=== PATIENT | female | born 1960 | race Caucasian/White ===

== ENCOUNTER 2019-04-07 14:46 | Outpatient (CLI) | payer BC, SELFPAY ==
--- NOTE | ~2019-04-07 | MM_ITS ---
EXAMINATION: MM screening [facility] BI w gabriela HISTORY: Screening mammogram TECHNIQUE: Craniocaudal and mediolateral oblique 3-D tomosynthesis images were obtained and synthetic 2-D images were generated. CAD analysis was submitted and interpreted. COMPARISON: Prior mammograms dating back to 02/15/2015 BREAST PARENCHYMAL COMPOSITION: There are scattered areas of fibroglandular density. FINDINGS: There is no evidence of suspicious mass, calcification, or architectural distortion to sugg est malignancy in either breast. There has been no suspicious interval change. IMPRESSION: 1. No mammographic evidence of malignancy. 2. Recommend routine screening mammography in one year. BI-RADS Category 1: Negative Reviewed, dictated and finalized at location A. LATOR OPERATOR
== END 2019-04-07 14:47 | disposition home or self-care (01) ==
LOC: ANHIMG 14:47
PROVIDERS: PCP Internal Medicine; Visit Provider Internal Medicine
DX: Z12.31 Encounter for screening mammogram for malignant neoplasm of breast (principal)
CPT/HCPCS: 77063; 77067

== ENCOUNTER 2019-10-03 15:06 | Outpatient (CLI) | payer BC, SELFPAY ==
--- NOTE | ~2019-10-03 | DEXA_ITS ---
Bone Density Report Name: Padmini Soni Age: 59 Sex: Female Ethnicity: White Date of : 1960 Indication: osteopenia; parental hip fracture; Referring Provider: [place], Letty Blake Study: Bone densitometry was performed. Exam Date: October 03, 2019 Accession number: [id number] Bone Density: Region BMD T-score Z-score Classification AP Spine (L1-L4) 0.870 -1.6 -0.2 Osteopenia Femoral Neck (Left) 0.628 -2.0 -0.7 Osteopenia Total Hip (Left) 0.754 -1.5 -0.6 Osteopenia Total Hip Bilateral Avg 0.733 -1.7 -0.8 Osteopenia Femoral Neck (Right) 0.630 -2.0 -0.7 Osteopenia Total Hip (Right) 0.711 -1.9 -1.0 Osteopenia World Health Organization criteria for BMD impression classify patients as: Normal (T-score at or above -1.0), Osteopenia (T-score between -1.0 and -2.5), or Osteoporosis (T-score at or below -2.5). 10-year Fracture Risk(1): Major Osteoporotic Fracture 18% Hip Fracture 1.1% Reported Risk Factors: [place] (), Neck BMD=0.630, BMI=25.9, parental fracture (1) FRAX(R) Version 3.08. Fracture probability calculated for an untreated patient. Fracture probability may be lower if the patient has received treatment. Previous Exams: Region Exam Age BMD T-score BMD Change BMD Change Date g/cm2 vs Baseline vs Previous AP Spine(L1-L4) 10/03/2019 59 0.870 -1.6 -0.086(-9.0%)# -0.001(-0.1%) 01/20/2016 55 0.871 -1.6 -0.085(-8.8%)# -0.085(-8.8%)# 12/12/2011 51 0.956 -0.8 Total Hip(Left) 10/03/2019 59 0.754 -1.5 -0.088(-10.4%) -0.080(-9.5%)* 01/20/2016 55 0.834 -0.9 -0.008(-1.0%)# -0.008(-1.0%)# 12/12/2011 51 0.842 -0.8 Total Hip(Right) 10/03/2019 59 0.711 -1.9 -0.124(-14.8%) -0.015(-2.0%) 01/20/2016 55 0.726 -1.8 -0.109(-13.0%) -0.109(-13.0%) 12/12/2011 51 0.835 -0.9 *Denotes significance at 95% confidence level, LSC for AP Spine = 0.022 g/cm2, LSC for Total Hip = 0.027 g/cm2 Clinical Information Provided by Patient: Parent has had a hip fracture Has used the following medications: Vitamin D, Calcium Patient maximum height was 63 Menopause Age: 51 Drinks caffeinated beverages Onset of menses at age 13 Number of children 2 Impression: The patient has low bone mass, based on the Left Femoral Neck T-score. The patient has an estimated ten-year risk of hip fracture of 1.1% and an estimated ten-year risk of major fracture of 18%, based on the WHO FRAX algorithm. The patient has risk factors, including:
== END 2019-10-03 15:07 | disposition home or self-care (01) ==
PROVIDERS: PCP Internal Medicine; Visit Provider Nurse Practitioner Family
DX: M85.89 Other specified disorders of bone density and structure, multiple sites (principal)
CPT/HCPCS: 77080

== ENCOUNTER 2020-04-29 09:32 | Outpatient (CLI) | payer BC, SELFPAY ==
--- NOTE | ~2020-04-29 | XR_ITS ---
EXAMINATION: XR abdomen/kub 1V EXAM DATE: 04/29/2020 10:12 INDICATION: Right kidney stone. TECHNIQUE: Frontal projection(s) of the abdomen for interpretation. Comparison is made to prior exami nation from 01/08/2018. FINDINGS: There are cholecystectomy clips. There is moderate amount of colonic stool and gas. No s mall bowel dilation, nonobstructive bowel gas pattern. Calcifications in the pelvis are believed to be phleboliths. There is no organomegaly suspected. Mild lumbar dextroscoliosis. No evidence of ba silar airspace disease. IMPRESSION: Multiple pelvic calcifications consistent with phleboliths. Moderate colonic stool. Reviewed, dictated and finalized at location B. FILLER IMPRESSION: Multiple pelvic calcifications consistent with phleboliths. Modera te colonic stool.
== END 2020-04-29 09:33 | disposition home or self-care (01) ==
PROVIDERS: PCP Nurse Practitioner Family; Visit Provider Urology
DX: N20.0 Calculus of kidney (principal)
CPT/HCPCS: 74018

== ENCOUNTER 2020-07-14 13:51 | Outpatient (CLI) | payer BC, SELFPAY ==
--- NOTE | ~2020-07-14 | MM_ITS ---
EXAMINATION: MM screening [facility] BI w gabriela HISTORY: Screening mammogram TECHNIQUE: Craniocaudal and mediolateral oblique 3-D tomosynthesis images were obtained and synthetic 2-D images were generated. CAD analysis was submitted and interpreted. COMPARISON: 04/07/2019, 09/10/2018, 03/18/2018, 03/14/2017 BREAST PARENCHYMAL COMPOSITION: The breasts are almost entirely fatty. FINDINGS: There is no evidence of suspicious mass, calcification, or architectural distortion to sugg est malignancy in either breast. There has been no suspicious interval change. IMPRESSION: 1. No mammographic evidence of malignancy. 2. Recommend routine screening mammography in one year. BI-RADS Category 1: Negative Reviewed, dictated and finalized at location A.
== END 2020-07-14 13:52 | disposition home or self-care (01) ==
LOC: ANHIMG 13:56
PROVIDERS: PCP Nurse Practitioner Family; Visit Provider Nurse Practitioner Family
DX: Z12.31 Encounter for screening mammogram for malignant neoplasm of breast (principal)
CPT/HCPCS: 77063; 77067

== ENCOUNTER 2020-07-14 14:29 | Outpatient (CLI) | payer BC, SELFPAY | END 2020-07-14 14:30 | disposition home or self-care (01) | LOC: ANHSURGERY 14:32 | PROVIDERS: PCP Nurse Practitioner Family; Visit Provider Urology | DX: N39.3 Stress incontinence (female) (male) (principal) | CPT/HCPCS: 87086 ==

== ENCOUNTER → 2020-07-20 02:52 | Outpatient (CLI) | payer BC, SELFPAY ==
[2020-07-20 20:06] LABS: SARS-CoV-2 RNA PCR Negative
== END ==
PROVIDERS: PCP Nurse Practitioner Family; Visit Provider Urology
DX: Z01.812 Encounter for preprocedural laboratory examination (principal); Z20.822 Contact with and (suspected) exposure to COVID-19
CPT/HCPCS: C9803; U0003; U0005

== ENCOUNTER 2020-07-23 02:35 | Day surgery (SDC) | payer BC, SELFPAY ==
[2020-07-13 09:41] VITALS: BMI 27.0
--- NOTE | 2020-07-16 19:20 | PM.IMHP ---
H&P: HPI History of Present Illness Date/Time: 07/16/20 19:20 60-year-old woman with mixed urinary incontinence. She has both stress and urge. She is here for treatment of stress incontinence Chief Complaint: MANOHAR Review of Systems Review of Systems: All systems reviewed & are unremarkable except as noted in HPI and below PMFSH Past Medical History Medical History (Reviewed 04/27/20 @ 15:28 by Ghislaine Piedra [facility]) Depression Epigastric pain GERD (gastroesophageal reflux disease) Surgical History Surgical History History of delivery x2 History of cholecystectomy Family History Family History Mother Patient's mother is , Onset Age: 89 Hypertension Family history of Alzheimer's disease Father Patient's father is , Onset Age: 71 Cerebrovascular accident Social History Social History (Reviewed 04/27/20 @ 15:28 by Ghislaine Piedra [facility]) Smoking packs per day: 1 Smoking cigarettes per day: 20.0 Years smoked: 2 Smoking pack-years: 2.00 Smoking status: Former smoker Tobacco type: cigarettes Smoking end date: 03/05/78 Alcohol intake: never Substance use: never Last use: 1978 Gender identity (if verbalized by the patient): Female Spiritual care concerns: No Meds Home Medications and Allergies Home Medications Medication Instructions Recorded Confirmed Type estradiol 10 mcg VAGINAL DAILY 07/13/20 07/13/20 History potassium citrate 15 meq PO DAILY 07/13/20 07/13/20 History Allergies Allergy/AdvReac Type Severity Reaction Status Date / Time nitrofurantoin Allergy Unknown FEVER AND Verified 04/27/20 15:26 JOINT PAIN sulfamethizole Allergy Unknown Fever Verified 04/27/20 15:26 sulfamethoxazole Allergy Unknown FEVER AND Verified 04/27/20 15:26 JOINT PAIN trimethoprim Allergy Unknown Fever Verified 04/27/20 15:26 hydrocodone AdvReac Unknown NAUSEA/VOMI Verified 04/27/20 15:26 TING Exam Const: General: cooperative and healthy appearing HENMT: Head: normal to inspection Eyes: General: appearance normal, both eyes and all related structures Neck: Neck: normal visual inspection Resp: Effort & Inspection: normal respiratory effort and able to speak in complete sentences Back/Spine/Pelvis: Back: no CVA tenderness Skin: General skin exam: normal color Assessment and Plan Assessment and plan (1) MANOHAR (stress urinary incontinence, female): Code(s): N39.3 - Stress incontinence (female) (male) Status: Acute Assessment and Plan: urethral sling
[2020-07-23 06:12] VITALS: BP 110/60; PULSE 74; RESP 16; TEMP 36.4; O2SAT 99
[2020-07-23] MEDS: LACTATED RINGERS 1,000 ML 30 ML IV CONT (06:20)
--- NOTE | 2020-07-23 07:14 | WPDHPUPDATE1 ---
History and Physical Update Update Date/Time: 07/23/20 07:14 History and Physical has been reviewed, including an updated exam of the patient. There are NO changes in the patient's condition. Risks, benefits, and alternatives have been discussed and questions answered. Patient agrees to proceed with procedure.
--- NOTE | 2020-07-23 07:28 | WPDANESEPPF ---
Anes - Initial Pre Proc Eval Procedure: Operation Date: 07/23/20 07:30 Proposed Procedures p Urethral Sling - Gomez Berkowitz MD Date/Time: 07/23/20 07:28 Surgeon: Gomez Berkowitz MD Pre Op Diagnosis: stress incon. Patient Data Age: 60 Gender: F Height: 5 ft 2 in Weight: 66.8 kg Last Vital Signs Temp 97.6 F 07/23/20 06:12 Pulse 74 07/23/20 06:12 Resp 16 07/23/20 06:12 BP 110/60 07/23/20 06:12 Pulse Ox 99 07/23/20 06:12 Allergies Allergy/AdvReac Type Severity Reaction Status Date / Time nitrofurantoin Allergy Unknown FEVER AND Verified 07/23/20 06:53 JOINT PAIN sulfamethizole Allergy Unknown Fever Verified 07/23/20 06:53 sulfamethoxazole Allergy Unknown FEVER AND Verified 07/23/20 06:53 JOINT PAIN trimethoprim Allergy Unknown Fever Verified 07/23/20 06:53 hydrocodone AdvReac Unknown NAUSEA/VOMI Verified 07/23/20 06:53 TING Home Medications Medication Instructions Recorded Confirmed Type estradiol 10 mcg VAGINAL DAILY 07/13/20 07/23/20 History potassium citrate 15 meq PO DAILY 07/13/20 07/23/20 History Patient hx anesthesia problems: none Family hx anesthesia problems: none PMFSH Past Medical History Medical History Depression Epigastric pain GERD (gastroesophageal reflux disease) Surgical History Surgical History History of delivery x2 History of cholecystectomy Family History Family History Mother Patient's mother is , Onset Age: 89 Hypertension Family history of Alzheimer's disease Father Patient's father is , Onset Age: 71 Cerebrovascular accident Social History Social History Smoking packs per day: 1 Smoking cigarettes per day: 20.0 Years smoked: 2 Smoking pack-years: 2.00 Smoking status: Former smoker Tobacco type: cigarettes Smoking end date: 03/05/78 Alcohol intake: never Substance use: never Last use: 1978 Living arrangements: with family Gender identity (if verbalized by the patient): Female Sexual Orientation (if Verbalized by the Patient): Straight or Heterosexual Spiritual care concerns: No Anes - Eval Final PreProcedure Day of Procedure 07/23/20 07:28 Patient weight: normal Heart: regular rate and rhythm Lungs: clear to auscultation Airway: Mallampati scale class II Neurological: alert and oriented Last oral intake: >/= 8 hours ASA classification: II Emergent: no Anesthetic plan: proceed Anesthesia type and monitoring: general GIVS and standard monitoring Informed Consent: The patient's anesthetic plan and its attendant risks and benefits were discussed with the patient/family/POA. Questions were solicited and answers provided to the satisfaction of the patient/family/POA.
[2020-07-23] MEDS: ceFAZolin 2 GM/D5W 50 ML 2 GM/50 ML BAG IVPB (07:30)
[2020-07-23] MEDS: LIDO 1%/EPINEPHRINE 1:100,000 50 ML VIAL 10 ML INFILTRATE (07:46)
--- NOTE | 2020-07-23 07:55 | PM.PROC ---
Procedure Note - Detailed Date of procedure: 07/23/20 Pre-op diagnosis: stress incon. Stress urinary incontinence Post-op diagnosis: same Procedure performed: Transobturator Mid-urethral sling Cystoscopy Description of procedure: Anesthesia: Mac/local This is a patient with confirmed stress urinary incontinence. She desires correction. She understands the risks of bleeding, infection, damage to the urinary tract, lack of cure of stress incontinence, recurrence of stress incontinence, postoperative voiding dysfunction including incontinence and retention, need for ancillary procedures to loosen remove the sling, postoperative voiding dysfunction including retention and overactive bladder, hip and leg pain, dyspareunia, mesh related complications including exposure and extrusion. She agrees to proceed. She understands it will not help overactive bladder symptoms if present. She was correctly identified and informed consent obtained. She is brought to the operating room. She was given appropriate anesthesia. She was placed in the dorsal lithotomy position. All pressure points were padded. She was given appropriate perioperative antibiotics and a time-out performed. A Tyler catheter is placed. I marked out the thigh incisions anesthetize the skin and made those incisions. I anesthetized the anterior vaginal wall over the mid urethra. I made a 1 cm incision. I dissected out laterally taking great care not to injure the urethra or the vaginal wall. Passed the helical trocars 1st on the left and then on the right from the thigh incision towards the vaginal incision. Sling was connected to the trocars and brought out through the thigh incision. I tensioned the sling appropriately. I cut and removed the plastic sheaths. I closed the incision with 2 0 Vicryl. I then performed cystoscopy. There was no surgical artifact or abnormalities inside the bladder. The urethra was normal without surgical artifact. I cut the excess sling material. I closed the incisions with glue. She was awakened and transferred to the PACU in stable condition. Implants: Mid urethral sling Surgeon: Gomez Berkowitz MD Drains: No Packing: No Pathology: none sent Complications: No immediate complications Condition: stable Disposition: PACU
[2020-07-23 07:59] VITALS: BP 95/48; PULSE 80; RESP 16; O2SAT 98
[2020-07-23 08:25] VITALS: BP 109/71; PULSE 85; RESP 16; O2SAT 98
[2020-07-23] MEDS: oxyCODONE HCL (*CRX) 5 MG TAB IR PO (08:39)
[2020-07-23 08:55] VITALS: BP 85/62; PULSE 74; RESP 16
[2020-07-23 09:10] VITALS: BP 87/64; PULSE 59; RESP 16
--- NOTE | 2020-07-23 10:07 | SUR.PHASEII ---
After discharged from hospital patient came back, while in car came in to outpatient waiting room reporting patient having back pain and shortness of breath, advised to immediately go to ER. Charting nurse informed Dr Chatterjee and Dr Berkowitz and ER charge was called to let her know patient was arriving.
== END 2020-07-23 09:15 | disposition home or self-care (01) ==
PROVIDERS: PCP Nurse Practitioner Family; Visit Provider Urology
PROC: (CPT 57288; principal; 2020-07-23 07:30)
DX: N39.3 Stress incontinence (female) (male) (principal); K21.9 Gastro-esophageal reflux disease without esophagitis; F32.9 Major depressive disorder, single episode, unspecified; Z87.891 Personal history of nicotine dependence
CPT/HCPCS: 57288; A9270; C1771; J0690; J2704; J3010; J7030; J7120

== ENCOUNTER 2020-07-23 09:43 | Emergency (ER) | payer BC, SELFPAY ==
--- NOTE | 2020-07-23 09:48 | ECG_ITS ---
Measurements Intervals [place] Rate: 86 P: 64 MA: 172 QRS: 27 QRSD: 82 T: -4 QT: 334 QTc: 400 Interpretive Statements SINUS RHYTHM POSSIBLE LEFT ATRIAL ENLARGEMENT LOW QRS VOLTAGE IN PRECORDIAL LEADS CANNOT RULE OUT SEPTAL INFARCT, AGE INDETERMINATE BORDERLINE ST-T WAVE ABNORMALITY- ANTEROLAT/INF LEADS BASELINE ARTIFACT- I, II, III, AVR, AVL, AVF, V1-V6 ABNORMAL ECG Electronically Signed On 07-23-2020 10:10:12 CDT by Prabhjot Reyes D.O.
[2020-07-23 09:49] VITALS: BP 125/67; PULSE 89; RESP 24; TEMP 36.1; O2SAT 97
[2020-07-23] MEDS: ONDANSETRON INJ 4 MG/2 ML VIAL IV PUSH (10:02)
[2020-07-23] MEDS: SODIUM CHLORIDE 0.9% IV 1,000 ML 150 ML IV CONT (10:02)
[2020-07-23] MEDS: methylPREDNISolone SOD SUCC 125 MG VIAL IV PUSH (10:03)
[2020-07-23 10:13] LABS: Basophils Absolute Auto 0.1 K/mm3 (0.0-0.1); Basophils Percent Auto 0.9 % (0.2-1.2); Eosinophils Absolute Auto 0.4 K/mm3 (0-0.3); Eosinophils Percent Auto 5.2 % (0-4.4); Hematocrit 43.8 % (37.0-47.0); Hemoglobin 14.6 g/dL (12.0-15.0); Immature Granulocyte Absolute 0.02 K/mm3 (0.00-0.031); Immature Granulocyte Percent A 0.3 % (0-0.5); Lymphocytes Absolute Auto 2.51 K/mm3 (0.9-3.2); Lymphocytes Percent Auto 32.8 % (18.3-44.2); Mean Corpuscular HGB Conc 33.3 g/dl (32-36); Mean Corpuscular Hemoglobin 31.6 pg (26-34); Mean Corpuscular Volume 94.8 fl (80-100); Monocytes Absolute Auto 0.6 K/mm3 (0.1-0.6); Monocytes Percent Auto 8.1 % (2.6-8.5); Neutrophils Percent Auto 52.7 % (45.5-73.1); Platelet Count Result 308 k/mm3 (150-375); Red Blood Count 4.62 M/mm3 (4.2-5.4); Red Cell Distribution Width 14.6 % (11.5-14.5); White Blood Count 7.7 K/mm3 (4.5-10.0)
[2020-07-23 11:37] LABS: Anion Gap 1 mmol/L (8-16); Blood Urea Nitrogen 15 mg/dL (7-17); Calcium 8.2 mg/dL (8.4-10.2); Carbon Dioxide 28 mmol/L (22-30); Chloride 108 mmol/L (98-107); Estimated CRCL calculation 77 ml/min; Estimated Glomerular Filt Rate > 60; Glucose 99 mg/dL (65-105); Potassium 3.8 mmol/L (3.4-5.0); Sodium 137 mmol/L (137-145)
--- NOTE | 2020-07-23 12:31 | ED.ALLEREA ---
HPI - Allergic Reaction General Chief complaint: Allergic Reaction Stated complaint: possible allergic reaction Time Seen by Provider: 07/23/20 09:53 Source: patient and family Mode of arrival: ambulatory Limitations: no limitations History of Present Illness HPI narrative: 60-year-old here with complaints of nausea, chest pain, shortness of breath for past 15 minutes. Patient states that sling procedure done by Dr. Berkowitz in his office at the time of discharge she was given oxycodone while she was driving home started experiencing the symptoms. She states that she is sensitive to narcotics. complaint: allergic reaction Onset (ago): minute(s) (30) Exposure: medication Known history of allergy to: Oxycodone Symptoms: difficulty breathing and nausea Severity: moderate Treatment prior to arrival: none Previous Allergic Reaction History: none Related Data Home Medications Medication Instructions Recorded Confirmed estradiol 10 mcg VAGINAL DAILY 07/13/20 07/23/20 potassium citrate 15 meq PO DAILY 07/13/20 07/23/20 Allergies Allergy/AdvReac Type Severity Reaction Status Date / Time nitrofurantoin Allergy Unknown FEVER AND Verified 07/23/20 09:58 JOINT PAIN sulfamethizole Allergy Unknown Fever Verified 07/23/20 09:58 sulfamethoxazole Allergy Unknown FEVER AND Verified 07/23/20 09:58 JOINT PAIN trimethoprim Allergy Unknown Fever Verified 07/23/20 09:58 hydrocodone AdvReac Unknown NAUSEA/VOMI Verified 07/23/20 09:58 TING Review of Systems Review of Systems: All systems reviewed & are unremarkable except as noted in HPI and below Constitutional: Constitutional: Reports no additional constitutional complaints Eyes: Eyes: Reports no additional eye complaints ENT: Reports system reviewed and no additional complaints, except as documented Cardiovascular: Cardiovascular: Reports no additional cardiovascular complaints Respiratory: Respiratory: Reports no additional respiratory complaints Gastrointestinal: Gastrointestinal: Reports as per HPI Musculoskeletal: Musculoskeletal: Reports no additional musculoskeletal complaints [facility] Past Medical History Medical History Depression Epigastric pain GERD (gastroesophageal reflux disease) Surgical History Surgical History History of delivery x2 History of cholecystectomy Family History Family History Mother Patient's mother is , Onset Age: 89 Hypertension Family history of Alzheimer's disease Father Patient's father is , Onset Age: 71 Cerebrovascular accident Social History Social History Smoking packs per day: 1 Smoking cigarettes per day: 20.0 Years smoked: 2 Smoking pack-years: 2.00 Smoking status: Former smoker Tobacco type: cigarettes Smoking end date: 03/05/78 Alcohol intake: never Substance use: never Last use: 1978 Gender identity (if verbalized by the patient): Female Spiritual care concerns: No Exam Narrative: Exam Narrative: GENERAL: Well-appearing, well-nourished, and in no acute distress. HEAD: Normocephalic, atraumatic. EYES: PERRLA and EOMI. ENT: Nares clear, no rhinorrhea or epistaxis. Mucous membranes moist. NECK: Supple. CHEST: Clear to auscultation. No respiratory distress. HEART: Regular rate and rhythm. No murmur heard. Normal peripheral pulses. ABDOMEN: Soft, nontender, nondistended, normal active bowel sounds. EXTREMITIES: Normal range of motion. No edema. SKIN: Warm, dry, no rash. NEURO: No focal deficits. Alert and oriented x3. PSYCH: Normal mood and affect. Course Course Emergency Course: Patient feeling much better after the medication. Has nausea is much subsided. She does feel comfortable going home. I discussed lab work with the patient
== END 2020-07-23 12:44 | disposition home or self-care (01) ==
PROVIDERS: Emergency Provider Family Medicine; PCP Nurse Practitioner Family
DX: R11.0 Nausea (principal); R07.9 Chest pain, unspecified; R06.02 Shortness of breath; T40.2X5A Adverse effect of other opioids, initial encounter; R94.31 Abnormal electrocardiogram [ECG] [EKG]
CPT/HCPCS: 36415; 80048; 85025; 93005; 96361; 96374; 96375; 99284; J2405; J2930; J7030

== ENCOUNTER 2021-09-20 08:48 | Outpatient (CLI) | payer BC, SELFPAY ==
--- NOTE | ~2021-09-20 | XR_ITS ---
EXAM: XR abdomen/kub 1V DATE: 09/20/2021 09:07 HISTORY: RIGHT KIDNEY STONE . COMPARISON: 04/29/2020, CT cap 12/14/2018.. FINDINGS: Clear lung bases. Cholecystectomy clips. Normal bowel gas pattern. No organomegaly. Multip le pelvic phleboliths. Lumbar scoliosis and degenerative change. IMPRESSION: No radiographically visible nephrolithiasis. Reviewed, dictated and finalized at location K.
== END 2021-09-20 08:49 | disposition home or self-care (01) ==
PROVIDERS: PCP Nurse Practitioner Family; Visit Provider Nurse Practitioner Family
DX: N20.0 Calculus of kidney (principal)
CPT/HCPCS: 74018

== ENCOUNTER 2021-09-22 08:08 | Outpatient (CLI) | payer BC, SELFPAY ==
--- NOTE | ~2021-09-22 | MM_ITS ---
EXAMINATION: MM screening [facility] BI w gabriela HISTORY: Screening TECHNIQUE: Craniocaudal and mediolateral oblique 3-D tomosynthesis images were obtained and synthetic 2-D images were generated. CAD analysis was submitted and interpreted. COMPARISON: Comparison to multiple prior studies sequentially, with oldest reviewed study dated 01/03. BREAST PARENCHYMAL COMPOSITION: The breasts are almost entirely fatty. FINDINGS: There is no evidence of suspicious mass, calcification, or architectural distortion to sugg est malignancy in either breast. There has been no suspicious interval change. IMPRESSION: 1. No mammographic evidence of malignancy. 2. Recommend routine screening mammography in one year. BI-RADS Category 1: Negative Reviewed, dictated and finalized at location L.
== END 2021-09-22 08:09 | disposition home or self-care (01) ==
PROVIDERS: PCP Nurse Practitioner Family; Visit Provider Nurse Practitioner Family
DX: Z12.31 Encounter for screening mammogram for malignant neoplasm of breast (principal)
CPT/HCPCS: 77063; 77067

== ENCOUNTER 2022-03-04 22:33 | Observation (INO) | payer BC, SELFPAY ==
--- NOTE | ~2022-03-04 | CT_ITS ---
EXAMINATION: CT abdomen pelvis w con DATE: 03/05/2022 01:46 INDICATION: Abdominal pain. Nausea, vomiting, and diarrhea. TECHNIQUE: Computed tomography (CT) of the abdomen and pelvis was performed with 100 mL Omnipaque 350 intravenous contrast. Automated exposure control and iterative reconstruction technique were employe d. The dose-length product was 361.27 mGy-cm. COMPARISON: CT abdomen and pelvis 12/14/2018 FINDINGS: The visualized portions of the lung bases demonstrate mild atelectasis. Again seen is a 5 m m nodule in right lung lower lobe, likely benign. No pleural effusion. The heart size is normal. No p ericardial effusion. There is a small sliding hiatal hernia. There is a right posterior diaphragmatic hernia containing fat. There are cysts in the liver measuring up to 9 mm. There is stable mild intra hepatic and extrahepatic biliary duct dilatation, likely secondary to cholecystectomy. Calcifications in the spleen are consistent with old granulomatous disease. The pancreas is normal. Again seen are masses in the adrenal glands measuring soft tissue attenuation measuring up to 15 mm on the left, lik jus adenomas. There are cysts in right kidney measuring up to 5 mm. Left kidney is normal. There is a n umbilical hernia containing fat. There is liquid stool in the colon correlating with the symptom of diarrhea. There is diverticulosis of the colon without evidence of diverticulitis. The appendix is n ot visualized. There are no pathologically enlarged lymph nodes. There is no free intraperitoneal flu id. There is lumbar dextroscoliosis and moderate spondylosis. IMPRESSION: 1. Liquid stool in the colon correlating with the symptom of diarrhea. 2. Small sliding hiatal hernia. 3. Umbilical hernia containing fat. Reviewed, dictated and finalized at location A. 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
[2022-03-04 22:37] VITALS: BP 122/72; PULSE 107; RESP 20; TEMP 36.7; O2SAT 100
[2022-03-04 23:09] LABS: Basophils Percent Auto 0.3 % (0.2-1.2); Eosinophils Absolute Auto 0.3 K/mm3 (0-0.3); Eosinophils Percent Auto 2.5 % (0-4.4); Hematocrit 44.3 % (37.0-47.0); Hemoglobin 14.9 g/dL (12.0-15.0); Immature Granulocyte Absolute 0.03 K/mm3 (0.00-0.031); Immature Granulocyte Percent A 0.3 % (0-0.5); Lymphocytes Absolute Auto 0.65 K/mm3 (0.9-3.2); Lymphocytes Percent Auto 5.5 % (18.3-44.2); Mean Corpuscular HGB Conc 33.6 g/dl (32-36); Mean Corpuscular Hemoglobin 31.3 pg (26-34); Mean Corpuscular Volume 93.1 fl (80-100); Mean Platelet Volume 10.3 fl (7.4-10.4); Monocytes Absolute Auto 0.5 K/mm3 (0.1-0.6); Monocytes Percent Auto 4.1 % (2.6-8.5); Neutrophils Absolute Auto 10.4 K/mm3 (1.3-6.7); Neutrophils Percent Auto 87.3 % (45.5-73.1); Platelet Count Result 310 k/mm3 (150-375); Red Blood Count 4.76 M/mm3 (4.2-5.4); White Blood Count 11.9 K/mm3 (4.5-10.0)
[2022-03-04 23:19] LABS: Alanine Aminotransferase 21 U/L (6-35); Albumin Level 4.5 g/dL (3.5-5.1); Alkaline Phosphatase 89 U/L (38-126); Anion Gap 8 mmol/L (8-16); Aspartate Amino Transferase 33 U/L (14-36); Bilirubin,Total 0.5 mg/dL (0.2-1.3); Blood Urea Nitrogen 30 mg/dL (7-17); Calcium 8.8 mg/dL (8.4-10.2); Carbon Dioxide 22 mmol/L (22-30); Chloride 106 mmol/L (98-107); Estimated CRCL calculation 65 ml/min; Estimated Glomerular Filt Rate > 60; Glucose 116 mg/dL (65-110); Lipase 790 U/L (23-300); Sodium 136 mmol/L (137-145)
--- NOTE | 2022-03-05 00:03 | ED.NAVMDI ---
HPI - Nausea/Vomiting/Diarrhea General Chief complaint: Nausea/Vomiting/Diarrhea <JUDY Maki Last Filed: 03/05/22 03:12> Stated complaint: nausea <JUDY Maki Last Filed: 03/05/22 03:12> Time Seen by Provider: 03/04/22 23:48 <JUDY Maki Last Filed: 03/05/22 03:12> Source: patient <JUDY Maki Last Filed: 03/05/22 03:12> Mode of arrival: ambulatory <JUDY Maki Last Filed: 03/05/22 03:12> Limitations: no limitations <JUDY Maki Last Filed: 03/05/22 03:12> History of Present Illness HPI Narrative: This is a 61 year old female that presents to the ER for nausea, vomiting and diarrhea. Ongoing over the last couple of hours. Associated with crampy abdominal pain. She has not taken anything for her symptoms. Denies fevers, dysuria or hematochezia. <JUDY Maki Last Filed: 03/05/22 03:12> Related Data Home medications: Home Medications Medication Instructions Recorded Confirmed potassium citrate 15 mEq (1,620 15 meq PO DAILY 07/13/20 02/23/22 mg) tablet,extended release omeprazole 20 mg capsule,delayed 20 mg PO DAILY 01/10/22 02/23/22 release <JUDY Maki Last Filed: 03/05/22 03:12> Allergies/Adverse reactions: Allergies Allergy/AdvReac Type Severity Reaction Status Date / Time nitrofurantoin Allergy Unknown FEVER AND Verified 02/23/22 09:02 JOINT PAIN sulfamethizole Allergy Unknown Fever Verified 02/23/22 09:02 sulfamethoxazole Allergy Unknown FEVER AND Verified 02/23/22 09:02 JOINT PAIN trimethoprim Allergy Unknown Fever Verified 02/23/22 09:02 hydrocodone AdvReac Unknown NAUSEA/VOMI Verified 02/23/22 09:02 TING <JUDY Maki Last Filed: 03/05/22 03:12> Review of Systems Review of Systems: CONSTITUTIONAL: Denies fever GASTROINTESTINAL: Reports abdominal pain, nausea, vomiting, and diarrhea. GENITOURINARY: Denies dysuria or hematuria. <Jocelyn Gomes PA-C - Last Filed: 03/05/22 03:12> All systems reviewed & are unremarkable except as noted in HPI and below <Jocelyn Gomes PA-C - Last Filed: 03/05/22 03:12> PMFSH Past Medical History Medical History: Medical History (Updated 03/05/22 @ 03:12 by Jocelyn Gomes PA-C) Depression Epigastric pain Frequent loose stools GERD (gastroesophageal reflux disease) <Jocelyn Gomes PA-C - Last Filed: 03/05/22 03:12> Surgical History Surgical History: Surgical History History of delivery x2 History of cholecystectomy <Jocelyn Gomes PA-C - Last Filed: 03/05/22 03:12> Family History Family History: Family History Mother Patient's mother is , Onset Age: 89 Hypertension Family history of Alzheimer's disease Father Patient's father is , Onset Age: 71 Cerebrovascular accident <Jocelyn Gomes PA-C - Last Filed: 03/05/22 03:12> Social History Social History: Social History Smoking packs per day: 1 Smoking cigarettes per day: 20.0 Years smoked: 2 Smoking pack-years: 2.00 Smoking status: Former smoker Tobacco type: cigarettes Smoking end date: 03/05/78 Alcohol intake: never Substance use: never Last use: 1978 Gender identity (if verbalized by the patient): Female Sexual Orientation (if Verbalized by the Patient): Straight or Heterosexual Spiritual care concerns: No <Jocelyn Gomes PA-C - Last Filed: 03/05/22 03:12> Exam Narrative: GENERAL: Well-appearing, well-nourished, actively vomiting HEAD: Normocephalic, atraumatic. EYES: EOMI. ENT: Nares clear, no rhinorrhea or epistaxis. Mucous membranes moist. Oropharynx without tonsillar hypertrophy exudate or other lesions. CHEST: Clear to auscultation. No respiratory distress. No wheezes r
[2022-03-05] MEDS: FAMOTIDINE 20 MG/2 ML VIAL IV PUSH (00:11)
[2022-03-05] MEDS: SODIUM CHLORIDE 0.9% IV 1,000 ML 999 ML IV CONT (00:11)
[2022-03-05] MEDS: ONDANSETRON INJ 4 MG/2 ML VIAL IV PUSH (00:11)
[2022-03-05 01:14] LABS: Influenza A QL RT-PCR Negative (Negative); Influenza B QL RT-PCR Negative (Negative); SARS-CoV-2 RNA PCR Negative
[2022-03-05 01:41] LABS: Add Urine Microscopic? YES; Appearance Urine Clear (Clear); Bilirubin Urine Negative (Negative); Blood Urine Negative (Negative); Color Urine Yellow (Yellow); Glucose Urine UA Negative (Negative); Ketones Urine 1+ mg/dL (Negative); Leukocyte Esterase Ur Negative LEU/UL (Negative); Nitrate Urine Negative (Negative); Protein Urine Negative (Negative); Specific Grav Ur 1.015 (1.001-1.035); Urobilinogen Urine 0.2 mg/dL (<2.0)
[2022-03-05 02:04] LABS: Mucus Urine Rare /lpf; Squamous Epithelial Cell Urine Rare /hpf (Few); WBC Urine 0-3 /hpf
[2022-03-05] MEDS: METOCLOPRAMIDE HCL INJ 10 MG/2 ML VIAL IV PUSH (03:01)
[2022-03-05] MEDS: diphenhydrAMINE HCl INJ 50 MG/ML VIAL 25 MG IV PUSH (03:01)
[2022-03-05 05:08] VITALS: BP 113/52; PULSE 85; RESP 14; TEMP 36.2; O2SAT 100
[2022-03-05] MEDS: SODIUM CHLORIDE 0.9% IV 1,000 ML 125 ML IV CONT ×2 (05:08→13:40)
--- NOTE | 2022-03-05 05:25 | PM.IMHP ---
H&P: HPI History of Present Illness Date/Time: 03/05/22 05:25 Chief Complaint: Nausea vomiting diarrhea Narrative: Patient is a 61-year-old female with past medical history of kidney stones in GERD who presents to the ED with complaints of abdominal pain nausea vomiting diarrhea. Patient states she has had an episode of diverticulitis in the past. Most recently she had some abdominal issue completed a course of antibiotic and developed C diff and then subsequently completed a course of Dificid. She was following GI [facility] [employer] Daisy Mack. Patient had colonoscopy in [address] Celaya with diverticulosis with no polyps. At that time recommendation was for 7-10 year follow-up. In 2019 she also had an EGD by Dr. Waller for which she was 1 have gastric polyps. In the ED: Patient had abdominal CT scan with finding of diverticulosis present with possibly mild diverticulitis without abscess. With patient's possible diverticulitis finding we will admit patient for observation for gastroenteritis/diverticulitis so that we can advance diet. Review of Systems Review of Systems: Constitutional: No Fever, No Chills, No Night Sweats, No Fatigue, No Malaise ENT/Mouth: No Hearing Changes, No Ear Pain, No Nasal Congestion, No Sinus Pain, No Hoarseness, No sore throat, No Rhinorrhea, No Swallowing Difficulty Eyes: No Eye Pain, No Redness, No Vision Changes Cardiovascular: No Chest Pain, No Palpitations, No Dyspnea on Exertion, No Orthopnea, No Claudication, No Edema Respiratory: No Cough, No Sputum, No Wheezing, No Shortness of Breath Gastrointestinal: Endorses nausea vomiting diarrhea Genitourinary: No Dysuria, No Urinary Frequency, No Hematuria, No Urinary Incontinence, No Urgency Musculoskeletal: No Arthralgias, No Myalgias, No Joint Swelling, No Joint Stiffness, No Back Pain Skin: No Skin Lesions, No Pruritis, No Hair Changes Neuro: No Weakness, No Numbness, No Paresthesias, No Loss of Consciousness, No Syncope, No Dizziness, No Headache Psych: No Anxiety/Panic, No Depression, No Insomnia Heme: No Bruising, No Bleeding Lymph: No Adenopathy Endocrine: No Polyuria, No Polydipsia, No Temperature Intolerance [facility] Past Medical History Medical History (Updated 03/05/22 @ 05:30 by Neris Pichardo, ) Depression Epigastric pain Frequent loose stools GERD (gastroesophageal reflux disease) H/O renal calculi Surgical History Surgical History History of delivery x2 History of cholecystectomy Family History Family History Mother Patient's mother is , Onset Age: 89 Hypertension Family history of Alzheimer's disease Father Patient's father is , Onset Age: 71 Cerebrovascular accident Social History Social History Smoking packs per day: 1 Smoking cigarettes per day: 20.0 Years smoked: 2 Smoking pack-years: 2.00 Smoking status: Former smoker Tobacco type: cigarettes Second hand tobacco smoke exposure: No Smoking end date: 03/05/78 Alcohol intake: former Substance use: never Last use: 1978 Lack of Transportation: No Lack of Food: Never True Current Housing: I Have Housing Concerned About Future Housing: No Difficulty Paying Gas/Electric Bills: No Difficulty Paying for Meds: No Currently Unemployed: No Education: High School Diploma/GED Difficulty w/ Childcare or Family Care: No Gender identity (if verbalized by the patient): Female Sexual Orientation (if Verbalized by the Patient): Straight or Heterosexual Spiritual care concerns: No Meds Home Medications and Allergies Home Medications Medication Instructions Recorded Confirmed Type potassium citrate 15 mEq (1,620 15 meq PO BID 07/13/20 03/05/22 History mg) tablet,extended release omeprazole 20 mg capsule
[2022-03-05] MEDS: HEPARIN SODIUM 5,000 UNITS/ML VIAL 5000 UNITS SUB-Q ×2 (08:18→21:53)
[2022-03-05] MEDS: ASPIRIN 81 MG ENTERIC TABLET PO (08:19)
[2022-03-05] MEDS: PANTOPRAZOLE 40 MG TABLET PO (08:19)
[2022-03-05] MEDS: POTASSIUM CITRATE 5 MEQ TAB CR 15 MEQ PO ×2 (08:19→17:38)
--- NOTE | 2022-03-05 13:44 | PM.IMPN ---
Progress Note: A&P Assessment and Plan (1) Diverticulitis: Code(s): K57.92 - Diverticulitis of intestine, part unspecified, without perforation or abscess without bleeding Status: Acute Assessment and Plan: Patient has nausea, vomiting, diarrhea consistent with gastroenteritis, CT scan shows possible mild diverticulitis, but with patient's recent C diff episode will hold off on antibiotics. Continue clear liquid diet PRN analgesics and antiemetics. Continue IV fluids - NS@150 mL/hour Repeat CBC in am. (2) Elevated lipase: Code(s): R74.8 - Abnormal levels of other serum enzymes Status: Acute Assessment and Plan: Lipase mildly elevated. CT scan without pancreatitis. Likely secondary to vomiting. (3) GERD (gastroesophageal reflux disease): Qualifiers: Esophagitis presence: without esophagitis Qualified Code(s): K21.9 - Gastro-esophageal reflux disease without esophagitis Code(s): K21.9 - Gastro-esophageal reflux disease without esophagitis Status: Acute Assessment and Plan: Chronic, continue PPI Plan CODE STATUS: FULL CODE Disposition: observation, home when tolerating diet. Time Spent With Patient Time with patient: 15 - 25 minutes Subjective Date/time seen: 03/05/22 13:44 She had a large, watery bowel movement today. She has nausea but has not had any vomiting since admission. She does not want to eat much due to nausea. She has diffuse abdominal pain that is mild. Review of Systems Review of Systems: All systems reviewed & are unremarkable except as noted in HPI and below Exam Narrative: General: No acute distress.? Well-developed adult female lying in bed. Mental Status/Psych: Awake, alert and oriented x3 with clear speech. Neutral mood and affect. Pleasant and cooperative. Skin: fair, warm, dry and intact without rashes or lesions. No open wounds. Good turgor.? HEENT: Normocephalic. Sclera is non-icteric. EOM intact. PERRL. Grossly normal hearing. Oral mucosa dry. Tongue midline. Oropharynx within normal limits. Neck: Supple. Thyroid without nodularity. Trachea midline. No JVD. Heart: S1 and S2 regular rate and rhythm. No murmurs, gallops, or rubs auscultated. Chest: Respirations even and unlabored. Lung sounds are clear to auscultation in all lobes bilaterally without wheezes, rhonchi, or rales. Abdomen: Soft, round and mild diffuse tenderness to palpation.? Bowel sounds present in all 4 quadrants. No guarding. Extremities:? Grossly normal ROM all extremities. No edema. Radial and dorsalis pedis pulses +2 bilaterally. Neurological: No focal deficits. Cranial nerves 2-12 grossly intact.? Objective Data Vital Signs Vital Signs: Vital Signs - 24 hr 03/04/22 22:37 03/05/22 05:08 03/05/22 08:20 Temperature 98.1 F 97.1 F L Pulse Rate 107 H 85 Respiratory Rate 20 14 Blood Pressure 122/72 113/52 L Pulse Oximetry 100 100 Oxygen Delivery Room Air Room Air Intake/Output Intake/Output: Intake & Output 03/02/22 03/03/22 03/04/22 03/05/22 23:59 23:59 23:59 23:59 Intake Total 1220 Balance 1220 Meds/Results Medications: Active Medications Generic Name Dose Route Start Last Admin Trade Name Freq PRN Reason Stop Dose Admin Acetaminophen 650 mg 03/05/22 05:33 Acetaminophen 325 Mg Tablet PO Q4H PRN Mild Pain (1-3) or Fever Al Hydrox/Mg Hydrox/Simethicone 30 ml 03/05/22 05:33 Mag Hydrox/Al Hydrox/Simeth 30 Ml Udc PO QID PRN Dyspepsia Aspirin 81 mg 03/05/22 09:00 03/05/22 08:19 Aspirin 81 Mg Enteric Tablet PO 81 mg QAM TIO Administration Heparin Sodium (Porcine) 5,000 units 03/05/22 09:00 03/05/22 08:18 Heparin Sodium 5,000 Units/Ml Vial SUB-Q 5,000 units Q12HR TIO Administration Sodium Chloride 1,000 mls @ 125 mls/hr 03/05/22 03:15 03/05/22 05:08 Normal Saline Iv IV CONT 125 mls/hr .Q8H TIO Administration Ondansetron HCl 4 mg 03/05/22 05:3
[2022-03-05 14:00] VITALS: BP 87/51; PULSE 76; RESP 14; TEMP 37; O2SAT 98
[2022-03-05] MEDS: SODIUM CHLORIDE 0.9% IV 1,000 ML 150 ML IV CONT (21:43)
[2022-03-05 22:55] VITALS: BP 91/51; PULSE 72; RESP 16; TEMP 37.2; O2SAT 96
[2022-03-06] MEDS: SODIUM CHLORIDE 0.9% IV 1,000 ML 150 ML IV CONT ×3 (05:19→20:17)
[2022-03-06 05:38] VITALS: BP 94/58; PULSE 62; RESP 16; TEMP 36.8; O2SAT 96
[2022-03-06 06:52] LABS: Basophils Percent Auto 0.6 % (0.2-1.2); Eosinophils Absolute Auto 0.2 K/mm3 (0-0.3); Eosinophils Percent Auto 4.2 % (0-4.4); Hematocrit 37.5 % (37.0-47.0); Hemoglobin 12.3 g/dL (12.0-15.0); Immature Granulocyte Absolute 0.01 K/mm3 (0.00-0.031); Immature Granulocyte Percent A 0.2 % (0-0.5); Lymphocytes Absolute Auto 1.02 K/mm3 (0.9-3.2); Lymphocytes Percent Auto 21.3 % (18.3-44.2); Mean Corpuscular HGB Conc 32.8 g/dl (32-36); Mean Corpuscular Hemoglobin 30.4 pg (26-34); Mean Corpuscular Volume 92.8 fl (80-100); Mean Platelet Volume 10.5 fl (7.4-10.4); Monocytes Absolute Auto 0.4 K/mm3 (0.1-0.6); Monocytes Percent Auto 8.1 % (2.6-8.5); Neutrophils Absolute Auto 3.2 K/mm3 (1.3-6.7); Neutrophils Percent Auto 65.6 % (45.5-73.1); Platelet Count Result 211 k/mm3 (150-375); Red Blood Count 4.04 M/mm3 (4.2-5.4); Red Cell Distribution Width 14.6 % (11.5-14.5); White Blood Count 4.8 K/mm3 (4.5-10.0)
[2022-03-06 07:16] LABS: Alanine Aminotransferase 24 U/L (6-35); Albumin Level 2.7 g/dL (3.5-5.1); Alkaline Phosphatase 57 U/L (38-126); Anion Gap 4 mmol/L (8-16); Aspartate Amino Transferase 37 U/L (14-36); Bilirubin,Total 0.2 mg/dL (0.2-1.3); Blood Urea Nitrogen 13 mg/dL (7-17); Calcium 7.4 mg/dL (8.4-10.2); Carbon Dioxide 22 mmol/L (22-30); Chloride 113 mmol/L (98-107); Estimated CRCL calculation 65 ml/min; Estimated Glomerular Filt Rate > 60; Glucose 81 mg/dL (65-110); Potassium 3.7 mmol/L (3.4-5.0); Sodium 139 mmol/L (137-145)
[2022-03-06] MEDS: ASPIRIN 81 MG ENTERIC TABLET PO (09:43)
[2022-03-06] MEDS: PANTOPRAZOLE 40 MG TABLET PO (09:43)
[2022-03-06] MEDS: HEPARIN SODIUM 5,000 UNITS/ML VIAL 5000 UNITS SUB-Q ×2 (09:43→20:17)
[2022-03-06] MEDS: POTASSIUM CITRATE 5 MEQ TAB CR 15 MEQ PO ×2 (09:43→17:59)
[2022-03-06 15:00] VITALS: BP 95/78; PULSE 63; RESP 18; TEMP 36.8; O2SAT 99
[2022-03-06 15:44] VITALS: BMI 26.4
--- NOTE | 2022-03-06 17:49 | PM.IMPN ---
Progress Note: A&P Assessment and Plan (1) Diverticulitis: Code(s): K57.92 - Diverticulitis of intestine, part unspecified, without perforation or abscess without bleeding Status: Acute Assessment and Plan: Patient has nausea, vomiting, diarrhea consistent with gastroenteritis, CT scan shows possible mild diverticulitis, but with patient's recent C diff episode will hold off on antibiotics. PRN analgesics and antiemetics. Continue IV fluids until taking good PO. Trial low residue diet (2) Elevated lipase: Code(s): R74.8 - Abnormal levels of other serum enzymes Status: Acute Assessment and Plan: Lipase mildly elevated. CT scan without pancreatitis. Likely secondary to vomiting. (3) GERD (gastroesophageal reflux disease): Qualifiers: Esophagitis presence: without esophagitis Qualified Code(s): K21.9 - Gastro-esophageal reflux disease without esophagitis Code(s): K21.9 - Gastro-esophageal reflux disease without esophagitis Status: Acute Assessment and Plan: Chronic, continue PPI Plan CODE STATUS: FULL CODE Disposition: observation, home when tolerating diet. Time Spent With Patient Time with patient: 15 - 25 minutes Subjective Date/time seen: 03/06/22 17:49 She had multiple loose stools today. No abdominal pain, nausea or emesis. She has not been eating much today. She has some generalized weakness, but no focal deficits or dizziness. Review of Systems Review of Systems: All systems reviewed & are unremarkable except as noted in HPI and below Exam Narrative: General: No acute distress.?Tired appearing. Mental Status/Psych: Awake, oriented x3 with clear speech. Neutral mood. Skin: fair, warm, dry and intact without rashes or lesions. No open wounds. Fair turgor.? HEENT: Normocephalic. Sclera is non-icteric. Pupils equal and round. Oral mucosa dry. Neck: unremarkable. Heart: S1 and S2 regular rate and rhythm. No murmurs, gallops, or rubs auscultated. Chest: Respirations even and unlabored. Lung sounds are clear to auscultation in all lobes bilaterally without wheezes, rhonchi, or rales. Abdomen: Soft, mildly distended and nontender to palpation.? Bowel sounds present in all 4 quadrants. No guarding. Extremities:? Grossly normal ROM all extremities. No edema. Radial and dorsalis pedis pulses +2 bilaterally. Neurological: No focal deficits. ? Objective Data Vital Signs Vital Signs: Vital Signs - 24 hr 03/05/22 22:55 03/05/22 21:53 03/06/22 05:38 Temperature 99.0 F 98.3 F Pulse Rate 72 62 Respiratory Rate 16 16 Blood Pressure 91/51 L 94/58 L Pulse Oximetry 96 96 Oxygen Delivery Room Air 03/06/22 08:40 03/06/22 15:00 Temperature 98.3 F Pulse Rate 63 Respiratory Rate 18 Blood Pressure 95/78 L Pulse Oximetry 99 Oxygen Delivery Room Air Intake/Output Intake/Output: Intake & Output 03/03/22 03/04/22 03/05/22 03/06/22 23:59 23:59 23:59 23:59 Intake Total 4210 2840 Output Total 2 Balance 4208 2840 Meds/Results Medications: Active Medications Generic Name Dose Route Start Last Admin Trade Name Freq PRN Reason Stop Dose Admin Acetaminophen 650 mg 03/05/22 05:33 Acetaminophen 325 Mg Tablet PO Q4H PRN Mild Pain (1-3) or Fever Al Hydrox/Mg Hydrox/Simethicone 30 ml 03/05/22 05:33 Mag Hydrox/Al Hydrox/Simeth 30 Ml Udc PO QID PRN Dyspepsia Aspirin 81 mg 03/05/22 09:00 03/06/22 09:43 Aspirin 81 Mg Enteric Tablet PO 81 mg QAM TIO Administration Heparin Sodium (Porcine) 5,000 units 03/05/22 09:00 03/06/22 09:43 Heparin Sodium 5,000 Units/Ml Vial SUB-Q 5,000 units Q12HR TIO Administration Sodium Chloride 1,000 mls @ 150 mls/hr 03/05/22 03:15 03/06/22 12:11 Normal Saline Iv IV CONT 150 mls/hr .Q6H40M TIO Administration Ondansetron HCl 4 mg 03/05/22 05:36 Ondansetron Inj 4 Mg/2 Ml Vial IV PUSH Q6H PRN Nausea And Vo
[2022-03-06 21:38] VITALS: BP 119/71; PULSE 72; RESP 18; TEMP 37; O2SAT 98
[2022-03-07] MEDS: SODIUM CHLORIDE 0.9% IV 1,000 ML 150 ML IV CONT ×2 (03:07→09:51)
[2022-03-07 06:42] VITALS: BP 111/58; PULSE 63; RESP 20; TEMP 36.7; O2SAT 98
[2022-03-07 07:37] LABS: Alanine Aminotransferase 42 U/L (6-35); Albumin Level 3.1 g/dL (3.5-5.1); Alkaline Phosphatase 86 U/L (38-126); Anion Gap 2 mmol/L (8-16); Aspartate Amino Transferase 55 U/L (14-36); Bilirubin,Total 0.1 mg/dL (0.2-1.3); Blood Urea Nitrogen 5 mg/dL (7-17); Calcium 7.9 mg/dL (8.4-10.2); Carbon Dioxide 26 mmol/L (22-30); Chloride 109 mmol/L (98-107); Estimated CRCL calculation 74 ml/min; Estimated Glomerular Filt Rate > 60; Glucose 88 mg/dL (65-110); Potassium 3.7 mmol/L (3.4-5.0); Sodium 137 mmol/L (137-145)
[2022-03-07 07:38] LABS: Basophils Percent Auto 0.5 % (0.2-1.2); Eosinophils Absolute Auto 0.4 K/mm3 (0-0.3); Eosinophils Percent Auto 8.6 % (0-4.4); Hematocrit 38.6 % (37.0-47.0); Hemoglobin 12.7 g/dL (12.0-15.0); Immature Granulocyte Absolute 0.01 K/mm3 (0.00-0.031); Immature Granulocyte Percent A 0.2 % (0-0.5); Lymphocytes Absolute Auto 1.22 K/mm3 (0.9-3.2); Lymphocytes Percent Auto 30.1 % (18.3-44.2); Mean Corpuscular HGB Conc 32.9 g/dl (32-36); Mean Corpuscular Hemoglobin 31.2 pg (26-34); Mean Corpuscular Volume 94.8 fl (80-100); Monocytes Absolute Auto 0.5 K/mm3 (0.1-0.6); Monocytes Percent Auto 12.8 % (2.6-8.5); Neutrophils Absolute Auto 1.9 K/mm3 (1.3-6.7); Neutrophils Percent Auto 47.8 % (45.5-73.1); Platelet Count Result 223 k/mm3 (150-375); Red Blood Count 4.07 M/mm3 (4.2-5.4); Red Cell Distribution Width 14.4 % (11.5-14.5); White Blood Count 4.1 K/mm3 (4.5-10.0)
[2022-03-07] MEDS: PANTOPRAZOLE 40 MG TABLET PO (08:50)
[2022-03-07] MEDS: ASPIRIN 81 MG ENTERIC TABLET PO (08:50)
[2022-03-07] MEDS: HEPARIN SODIUM 5,000 UNITS/ML VIAL 5000 UNITS SUB-Q (08:50)
[2022-03-07] MEDS: POTASSIUM CITRATE 5 MEQ TAB CR 15 MEQ PO (08:50)
[2022-03-07 09:18] LABS: Lipase 47 U/L (23-300)
--- NOTE | 2022-03-07 11:07 | PM.DS ---
DS: Admitting Diagnosis Discharge Date 03/07/2022 1107 Admitting Diagnosis mild diverticulitis gastroenteritis elevated lipase DS: Discharge Diagnosis Discharge Diagnosis (1) Gastroenteritis and colitis, viral: Code(s): A08.4 - Viral intestinal infection, unspecified Status: Acute Assessment and Plan: Patient has nausea, vomiting, diarrhea consistent with gastroenteritis, CT scan shows possible mild diverticulitis, however, patient had recent Cdiff infection treated N/V resolved. No abd pain suggestive of diverticulitis. stools slowing. (2) Transaminitis: Code(s): R74.01 - Elevation of levels of liver transaminase levels Status: Acute Assessment and Plan: mildly elevated LFTs- AST 55, ALT 42, alk phos 86, Tbili 0.1. Previously elevated in the past. No abd pain. May be secondary to viral disease. Repeat CMP in 2 weeks. (3) Diverticulitis: Code(s): K57.92 - Diverticulitis of intestine, part unspecified, without perforation or abscess without bleeding Status: Acute Assessment and Plan: Patient has nausea, vomiting, diarrhea consistent with gastroenteritis, CT scan shows possible mild diverticulitis, however, patient had recent C diff episode No antibiotics given PRN analgesics and antiemetics. Continued IV fluids until taking good PO. low residue diet (4) Elevated lipase: Code(s): R74.8 - Abnormal levels of other serum enzymes Status: Acute Assessment and Plan: Lipase mildly elevated. CT scan without pancreatitis. Likely secondary to vomiting. Repeat lipase within normal limits. (5) GERD (gastroesophageal reflux disease): Qualifiers: Esophagitis presence: without esophagitis Qualified Code(s): K21.9 - Gastro-esophageal reflux disease without esophagitis Code(s): K21.9 - Gastro-esophageal reflux disease without esophagitis Status: Chronic Assessment and Plan: Chronic, continue PPI Plan DS: Summary Hospital Course Reason for hospitalization: N/V/D Hospital Course: Padmini Soni is a?61-year-old female with past medical history of kidney stones and GERD who presented to the ED with complaint of abdominal pain, nausea, vomiting, and diarrhea.? She reported an episode of diverticulitis in the past.? Most recently she had abdominal complaints and was treated with a course of antibiotics. She then developed C diff and then subsequently completed a course of Dificid.? Patient had colonoscopy in [address] Celaya with diverticulosis and no polyps.? In the ED, an abdominal CT scan showed diverticulosis with possibly mild diverticulitis without abscess.? She was admitted to the medical floor for supportive care, including IV fluids, IV antiemetics and IV analgesics. Stool samples were ordered, but for some reason not collected. Her nausea and vomiting resolved. She did have multiple stools at discharge, however, they had more form and smaller in number. She was initially treated with clear liquid diet, but advanced to low residue diet with good tolerance. Antibiotics were not given due to recent c-diff infection and symptoms did improve off antibiotics. Lipase was elevated on admission, however, this was thought to be secondary to vomiting as CT did not show acute pancreatitis. Lipase normalized by discharge. Additionally, she was noted to have mildly elevated AST and ALT. She had no liver disease noted on CT and no abd pain on exam. Comparison to previous labs showed prior history of mildly elevated LFTs. This may have been secondary to viral disease. She was counseled on elevated LFTs, healthy diet and follow-up discussion with PCP for re-evaluation. Repeat CMP in 2 weeks was ordered for monitoring. Status at Discharge Cognitive/behavioral status at discharge: Alert and oriented x4, baseline Functional status at discharge: independent ambulation Overall status at discharge: patient is progressing back to b
== END 2022-03-07 12:26 | disposition home or self-care (01) ==
LOC: ANHED 03-05 03:12 → ANH3MEDSUR 03-05 05:41
PROVIDERS: Nurse Practitioner Family; Physician Assistant; Admitting Provider Student in an Organized Health Care Education/Training Program; Emergency Provider Emergency Medicine; PCP Nurse Practitioner Family; Visit Provider Student in an Organized Health Care Education/Training Program
DX: K52.9 Noninfective gastroenteritis and colitis, unspecified (principal); A08.4 Viral intestinal infection, unspecified; R74.01 Elevation of levels of liver transaminase levels; K57.92 Diverticulitis of intestine, part unspecified, without perforation or abscess without bleeding; R74.8 Abnormal levels of other serum enzymes; K21.9 Gastro-esophageal reflux disease without esophagitis; F32.A Depression, unspecified; R11.2 Nausea with vomiting, unspecified; R10.9 Unspecified abdominal pain; R00.0 Tachycardia, unspecified; K44.9 Diaphragmatic hernia without obstruction or gangrene; K42.9 Umbilical hernia without obstruction or gangrene; D72.829 Elevated white blood cell count, unspecified; E86.0 Dehydration; Z20.822 Contact with and (suspected) exposure to COVID-19; Z87.891 Personal history of nicotine dependence; Z87.442 Personal history of urinary calculi; Z79.82 Long term (current) use of aspirin; Z79.899 Other long term (current) drug therapy
CPT/HCPCS: 36415; 74177; 80053; 81001; 83690; 85025; 87636; 96361; 96365; 96372; 96375; 99285; A9270; G0378; J0131; J1200; J1644; J2405; J2765; J7030; Q9967

== ENCOUNTER → 2022-05-17 08:15 | Outpatient (CLI) | payer BC, SELFPAY ==
--- NOTE | ~2022-05-17 | US_ITS ---
Pelvic ultrasound. Clinical History: Postmenopausal bleeding Technique: Realtime transabdominal and transvaginal scanning of the pelvis was performed. Color flow Doppler and Doppler spectral analysis were performed. Findings: The uterus is anteverted. The endometrial stripe has a thickness of 2 mm. Posterior wall f ibroid near the fundus measures 1.6 cm in diameter. Noted ovary visualized. No other adnexal mass seen. There is no evidence of free fluid in the cul de sac. Impression: Endometrial thickness is within normal limits. 1.6 cm uterine fibroid, as detailed above. Reviewed, dictated and finalized at location . Impression: Endometrial thickness is within normal limits. 1.6 cm uterine fibroid, as detailed above.
== END ==
PROVIDERS: PCP Nurse Practitioner Family; Visit Provider Nurse Practitioner Family
DX: N95.0 Postmenopausal bleeding (principal); D25.9 Leiomyoma of uterus, unspecified
CPT/HCPCS: 76830

== ENCOUNTER 2022-08-14 00:07 | Day surgery (SDC) | payer BC, SELFPAY ==
[2022-08-07 14:24] VITALS: BMI 25.9
--- NOTE | 2022-08-07 14:31 | PC.NURSE ---
Report to the Outpatient Waiting Room, entrance under the green pavilion located off [facility], at time _0730 on date 08/14/22_. Planned Procedure Time: _0930 . Time changes happen often and if your time is changed the preop area will call you the afternoon before. - You and your visitor will be asked to self-screen and do not enter if you have any COVID symptoms. - A mask is optional within the hospital at this time. Patients may have clear liquids (water, carbonated beverages, clear teas, apple juice) until 3 hours prior to surgery with a maximum of 20 ounces. - No food from midnight until time of surgery - Infants may have breast milk until 4 hours before surgery, formula 6 hours prior to surgery. - Children will be allowed to drink immediately following surgery. If applicable, please bring a bottle or sippy cup to assist with drinking. Juice, water, soda, and popsicles are readily available. For infants on formula, please bring formula the day of surgery. Pacifiers are allowed. Take the following medications with a SIP of water the morning of surgery: NONE DO NOT STOP ANY OF YOUR OTHER PRESCRIPTION MEDICATIONS PRIOR TO SURGERY ?EXCEPT THE FOLLOWING Medications to discontinue per physician PT TO ASK MD ABOUT ASPIRIN Date to take last dose Please no make-up, nail lao, hairspray, perfume, deodorant, or body powder the day of surgery. No jewelry (including any body piercings) or valuables the day of surgery, leave them at home. Please take a shower or bath the night before, or the morning of, surgery with an antibacterial soap. Wear comfortable, loose fitting clothing. Children are encouraged to wear pajamas. - Jewelry must be removed prior to entering the operating room. Rings and piercings that are not removed may be cut off. - The hospital will not accept responsibility for valuables. - Please leave all valuables, including medications, at home the day of surgery. If you are going home after surgery, a licensed locomotive driver must drive you home. - NO public transportation without another adult if you receive anesthesia. - We recommend that an adult stay with you for 24 hours following discharge. - We also recommend that you do not drive, make important decision, drink alcoholic beverages, or take any drugs that were not prescribed by your health care provider for at least 24 hours after your discharge time. For Pediatric surgeries, we recommend two adults accompany the child home. Follow any additional instructions given to you from your surgeon. If you or anyone in your household have experienced Covid symptoms in the past week, please notify your surgeon or the nurse liaison at the phone number below for possible testing. Telephone instructions given to _PATIENT_and asked if any additional questions and then verbalized understanding. Patient advised to call surgeon office or pre surgery nurse liaison [phone] if any additional questions.
--- NOTE | 2022-08-14 07:28 | WPDHPUPDATE1 ---
History and Physical Update Update Date/Time: 08/14/22 07:28 History and Physical has been reviewed, including an updated exam of the patient. There are NO changes in the patient's condition. Risks, benefits, and alternatives have been discussed and questions answered. Patient agrees to proceed with procedure.
--- NOTE | 2022-08-14 07:28 | PM.HPGS ---
History of Present Illness History of Present Illness Consent: Risks, benefits, and alternatives have been discussed and questions answered. Patient agrees to proceed with procedure. Chief complaint: post menopausal bleeding Narrative: Padmini Soni is a 62 year old female with 3 episodes of bleeding in the past year. The patient had a normal pelvic ultrasound. Due to multiple episodes of bleeding it was recommended to proceed with D&C hysteroscopy. Risks of infection, bleeding, perforation, and possible pathology were reviewed. Patient voices understanding and agrees to proceed. Review of Systems Review of Systems: not repeated day of surgery; patient states no changes in status PMFSH Past Medical History Medical History (Updated 08/14/22 @ 07:32 by Hortencia Shabazz MD) Depression Frequent loose stools GERD (gastroesophageal reflux disease) H/O renal calculi Surgical History Surgical History (Updated 08/14/22 @ 07:31 by Hortencia Shabazz MD) History of delivery x2 History of cholecystectomy History of oophorectomy, unilateral S/P endometrial ablation in her 40s Family History Family History Mother Patient's mother is , Onset Age: 89 Hypertension Family history of Alzheimer's disease Father Patient's father is , Onset Age: 71 Cerebrovascular accident Social History Social History Smoking packs per day: 1 Smoking cigarettes per day: 20.0 Years smoked: 2 Smoking pack-years: 2.00 Smoking status: Former smoker Tobacco type: cigarettes Second hand tobacco smoke exposure: No Smoking end date: 03/05/78 Alcohol intake: current Alcohol use details: 1 PER MONTH Substance use: former 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 use: 1978 Lack of Transportation: No Lack of Food: Never True Current Housing: I Have Housing Concerned About Future Housing: No Difficulty Paying Gas/Electric Bills: No Difficulty Paying for Meds: No Currently Unemployed: No Education: High School Diploma/GED Difficulty w/ Childcare or Family Care: No Living arrangements: with family Gender identity (if verbalized by the patient): Female Sexual Orientation (if Verbalized by the Patient): Straight or Heterosexual Spiritual care concerns: No Meds Home Medications and Allergies Home Medications Medication Instructions Recorded Confirmed Type potassium citrate 15 mEq (5,904 15 meq PO BID 07/13/20 08/07/22 History mg) tablet,extended release omeprazole 20 mg capsule,delayed 20 mg PO DAILY 01/10/22 08/07/22 History release Adult Aspirin EC Low Strength 81 mg PO DAILY 03/05/22 08/07/22 History Allergies Allergy/AdvReac Type Severity Reaction Status Date / Time codeine Allergy Intermediate Chest Pain Verified 08/07/22 14:22 nitrofurantoin Allergy Unknown FEVER AND Verified 02/23/22 09:02 JOINT PAIN sulfamethizole Allergy Unknown Fever Verified 02/23/22 09:02 sulfamethoxazole Allergy Unknown FEVER AND Verified 02/23/22 09:02 JOINT PAIN trimethoprim Allergy Unknown Fever Verified 02/23/22 09:02 hydrocodone AdvReac Unknown NAUSEA/VOMI Verified 02/23/22 09:02 TING Exam Const: General: healthy appearing and alert Orientation/consciousness: patient oriented x3 Resp: Effort & Inspection: normal respiratory effort GI: GI Palp: Yes Soft to palpation, No Tenderness to palpation present (GI) and No Palpable mass present : External Female Exam: normal external appearance Speculum Exam - Vagina: normal vaginal discharge and vagina atrophic Speculum Exam - Cervix: normal appearance of the cervix Bimanual exam- vagina & uterus: uterine size normal and consistency normal Bimanual Exam- Adnexa, other: normal adnexae and No adnexal tenderness Neuro: General: patient oriented x
[2022-08-14 07:53] VITALS: BP 106/55; PULSE 70; RESP 18; TEMP 36.2; O2SAT 98
[2022-08-14] MEDS: ACETAMINOPHEN 500 MG TABLET 1000 MG PO (08:16)
--- NOTE | 2022-08-14 08:59 | WPDANESEPPF ---
Anes - Initial Pre Proc Eval Procedure: Operation Date: 08/14/22 09:30 Proposed Procedures p Hysteroscopy, Dilation and Curettage - Hortencia Shabazz MD Date/Time: 08/14/22 08:59 Surgeon: Hortencia Shabazz MD Pre Op Diagnosis: post menopausal bleeding Patient Data Age: 62 Gender: F Height: 1.57 m Weight: 64.35 kg Last Vital Signs Temp 36.2 C L 08/14/22 07:53 Pulse 70 08/14/22 07:53 Resp 18 08/14/22 07:53 BP 106/55 L 08/14/22 07:53 Pulse Ox 98 08/14/22 07:53 O2 Del Method Room Air 08/14/22 07:53 Allergies Allergy/AdvReac Type Severity Reaction Status Date / Time codeine Allergy Intermediate Chest Pain Verified 08/14/22 08:07 nitrofurantoin Allergy Unknown FEVER AND Verified 08/14/22 08:07 JOINT PAIN sulfamethizole Allergy Unknown Fever Verified 08/14/22 08:07 sulfamethoxazole Allergy Unknown FEVER AND Verified 08/14/22 08:07 JOINT PAIN trimethoprim Allergy Unknown Fever Verified 08/14/22 08:07 hydrocodone AdvReac Unknown NAUSEA/VOMI Verified 08/14/22 08:07 TING Home Medications Medication Instructions Recorded Confirmed Type potassium citrate 15 mEq (1,620 15 meq PO BID 07/13/20 08/14/22 History mg) tablet,extended release omeprazole 20 mg capsule,delayed 20 mg PO DAILY 01/10/22 08/14/22 History release Adult Aspirin EC Low Strength 81 mg PO DAILY 03/05/22 08/14/22 History Patient hx anesthesia problems: none Family hx anesthesia problems: none Results Review: All pre-operative results and documents have been reviewed as part of the pre-operative evaluation. [facility] Past Medical History Medical History Depression Frequent loose stools GERD (gastroesophageal reflux disease) H/O renal calculi Surgical History Surgical History History of delivery x2 History of cholecystectomy History of oophorectomy, unilateral S/P endometrial ablation in her 40s Family History Family History Mother Patient's mother is , Onset Age: 89 Hypertension Family history of Alzheimer's disease Father Patient's father is , Onset Age: 71 Cerebrovascular accident Social History Social History Smoking packs per day: 1 Smoking cigarettes per day: 20.0 Years smoked: 2 Smoking pack-years: 2.00 Smoking status: Former smoker Tobacco type: cigarettes Second hand tobacco smoke exposure: No Smoking end date: 03/05/78 Alcohol intake: current Alcohol use details: 1 PER MONTH Substance use: former 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 use: 1978 Lack of Transportation: No Lack of Food: Never True Current Housing: I Have Housing Concerned About Future Housing: No Difficulty Paying Gas/Electric Bills: No Difficulty Paying for Meds: No Currently Unemployed: No Education: High School Diploma/GED Difficulty w/ Childcare or Family Care: No Living arrangements: with family Gender identity (if verbalized by the patient): Female Sexual Orientation (if Verbalized by the Patient): Straight or Heterosexual Spiritual care concerns: No Anes - Eval Final PreProcedure Day of Procedure 08/14/22 08:59 Patient weight: overweight Heart: regular rate and rhythm Lungs: clear to auscultation Airway: Mallampati scale class II Neurological: alert and oriented Last oral intake: >/= 8 hours ASA classification: II Emergent: no Anesthetic plan: proceed Anesthesia type and monitoring: general GIVS and standard monitoring Results Review: All pre-operative results and documents have been reviewed as part of the pre-operative evaluation. Informed Consent: The patient's anesthetic plan and its attendant risks and benefits were discussed with the patient/fam
[2022-08-14] MEDS: LIDOCAINE HCL 1% LOCAL INJ 20 ML VIAL 10 ML INFILTRATE (09:33)
--- NOTE | 2022-08-14 09:38 | P.OP_ITS ---
Procedure Note - Detailed Date of Procedure 08/14/22 Pre-op Diagnosis post menopausal bleeding Post-op Diagnosis Same Procedure Performed hysteroscopy Surgeon Hortencia Shabazz MD Anesthesia MAC and Local Findings external cervical os is stenotic and pinpoint; internal cervical os is stenotic Description of Procedure The patient is taken to the operating room and placed under anesthesia in the dorsal lithotomy position. She was prepped and draped in usual sterile fashion. [place] speculum was placed in the vagina and the cervix is grasped on the anterior lip with a tenaculum. There was an indentation at the location of the external cervical os but no visible opening. Os Finders are used to open the external cervix. They are also used to open the stenosis at the internal cervix. When placing the sound there was no resistance and the sound kept going past 10cm. Sound was removed and the hysteroscope placed and confirmed perforation with the os Finders. The instruments are removed and the patient awakened from anesthesia taken to recovery in stable condition. Sponge, needle, and instrument counts are correct per the OR staff. Estimated Blood Loss 5 Drains No Packing No Pathology None sent Complications Other complications ( perforation) Condition Stable Disposition PACU
[2022-08-14] MEDS: LACTATED RINGERS 1,000 ML 30 ML IV CONT (09:41)
[2022-08-14 09:42] VITALS: BP 94/55; PULSE 66; RESP 10; O2SAT 96
[2022-08-14 10:10] VITALS: BP 102/68; PULSE 65; RESP 12; O2SAT 97
[2022-08-14 10:40] VITALS: BP 98/72; PULSE 76; RESP 16; O2SAT 100
[2022-08-14 11:10] VITALS: BP 110/68; PULSE 67; RESP 16
[2022-08-14] MEDS: IBUPROFEN 600 MG TABLET PO (11:14)
== END 2022-08-14 11:19 | disposition home or self-care (01) ==
PROVIDERS: PCP Nurse Practitioner Family; Visit Provider Obstetrics & Gynecology Gynecology
PROC: 0U5B8ZZ Destruction of Endometrium, Via Natural or Artificial Opening Endoscopic (ICD-10-PCS; CPT 58563; principal; 2022-08-14 09:30)
DX: N95.0 Postmenopausal bleeding (principal); N88.2 Stricture and stenosis of cervix uteri; N99.71 Accidental puncture and laceration of a genitourinary system organ or structure during a genitourinary system procedure; K21.9 Gastro-esophageal reflux disease without esophagitis; Z79.82 Long term (current) use of aspirin; Z87.891 Personal history of nicotine dependence
CPT/HCPCS: 58555; A9270; J2250; J2405; J2704; J3010; J7120

== ENCOUNTER 2022-09-11 01:58 | Day surgery (SDC) | payer BC, SELFPAY ==
[2022-08-31 15:01] VITALS: BMI 26.5
--- NOTE | 2022-08-31 15:02 | SUR.PREOP ---
Report to the Outpatient Waiting Room, entrance under the green pavilion located off [facility], at time 1015 on date _09/11/22 . Planned Procedure Time: _1215 . Time changes happen often and if your time is changed the preop area will call you the afternoon before. - You and your visitor will be asked to self-screen and do not enter if you have any COVID symptoms. - A mask is optional within the hospital at this time. Patients may have clear liquids (water, carbonated beverages, clear teas, apple juice) until 3 hours prior to surgery with a maximum of 20 ounces. - No food from midnight until time of surgery - Infants may have breast milk until 4 hours before surgery, formula 6 hours prior to surgery. - Children will be allowed to drink immediately following surgery. If applicable, please bring a bottle or sippy cup to assist with drinking. Juice, water, soda, and popsicles are readily available. For infants on formula, please bring formula the day of surgery. Pacifiers are allowed. Take the following medications with a SIP of water the morning of surgery: _n/a DO NOT STOP ANY OF YOUR OTHER PRESCRIPTION MEDICATIONS PRIOR TO SURGERY ?EXCEPT THE FOLLOWING Medications to discontinue per physician n/a Date to take last dose__n/a Please no make-up, nail ugandan, hairspray, perfume, deodorant, or body powder the day of surgery. No jewelry (including any body piercings) or valuables the day of surgery, leave them at home. Please take a shower or bath the night before, or the morning of, surgery with an antibacterial soap. Wear comfortable, loose fitting clothing. Children are encouraged to wear pajamas. - Jewelry must be removed prior to entering the operating room. Rings and piercings that are not removed may be cut off. - The hospital will not accept responsibility for valuables. - Please leave all valuables, including medications, at home the day of surgery. If you are going home after surgery, a licensed tractor trailer moving van driver must drive you home. - NO public transportation without another adult if you receive anesthesia. - We recommend that an adult stay with you for 24 hours following discharge. - We also recommend that you do not drive, make important decision, drink alcoholic beverages, or take any drugs that were not prescribed by your health care provider for at least 24 hours after your discharge time. For Pediatric surgeries, we recommend two adults accompany the child home. Follow any additional instructions given to you from your surgeon. If you or anyone in your household have experienced Covid symptoms in the past week, please notify your surgeon or the nurse liaison at the phone number below for possible testing. Telephone instructions given to _pushpa martin and asked if any additional questions and then verbalized understanding. Patient advised to call surgeon office or pre surgery nurse liaison [phone] if any additional questions.
[2022-09-11 10:00] VITALS: BP 114/72; PULSE 67; RESP 16; TEMP 36.1; O2SAT 100
[2022-09-11] MEDS: LACTATED RINGERS 1,000 ML 30 ML IV CONT (10:22)
[2022-09-11] MEDS: ACETAMINOPHEN 500 MG TABLET 1000 MG PO (10:23)
--- NOTE | 2022-09-11 10:36 | WPDHPUPDATE1 ---
History and Physical Update Update Date/Time: 09/11/22 10:36 History and Physical has been reviewed, including an updated exam of the patient. There are NO changes in the patient's condition. Risks, benefits, and alternatives have been discussed and questions answered. Patient agrees to proceed with procedure.
--- NOTE | 2022-09-11 10:36 | PM.HPGS ---
History of Present Illness History of Present Illness Consent: Risks, benefits, and alternatives have been discussed and questions answered. Patient agrees to proceed with procedure. Chief complaint: post menopausal bleeding Narrative: Padmini Soni is a 62 year old female with several episodes of postmenopausal bleeding over the past year. Patient underwent attempted D&C hysteroscopy and August of 2022 with resultant perforation. The patient has had a prior endometrial ablation and severe stenosis was encountered. Patient has been given Cytotec 1000mcg nightly for 7 days to help with stenosis the internal os. Patient presents today for 2nd attempt at D&C hysteroscopy. Risks of infection, bleeding, perforation, and inability to enter the cavity are again reviewed. Patient voices understanding and agrees to proceed. Review of Systems Review of Systems: not repeated day of surgery; patient states no changes in status PMFSH Past Medical History Medical History Depression Frequent loose stools GERD (gastroesophageal reflux disease) H/O renal calculi Surgical History Surgical History (Updated 09/11/22 @ 10:38 by Hortencia Shabazz MD) History of delivery x2 History of cholecystectomy History of hysteroscopy August of 2022 failed secondary to perforation History of oophorectomy, unilateral S/P endometrial ablation in her 40s Family History Family History Mother Patient's mother is , Onset Age: 89 Hypertension Family history of Alzheimer's disease Father Patient's father is , Onset Age: 71 Cerebrovascular accident Social History Social History Smoking packs per day: 1 Smoking cigarettes per day: 20.0 Years smoked: 2 Smoking pack-years: 2.00 Smoking status: Never smoker Tobacco type: cigarettes Second hand tobacco smoke exposure: No Smoking end date: 03/05/78 Alcohol intake: current Alcohol use details: 1 PER MONTH Substance use: former 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 use: 1978 Lack of Transportation: No Lack of Food: Never True Current Housing: I Have Housing Concerned About Future Housing: No Difficulty Paying Gas/Electric Bills: No Difficulty Paying for Meds: No Currently Unemployed: No Education: High School Diploma/GED Difficulty w/ Childcare or Family Care: No Living arrangements: with family Gender identity (if verbalized by the patient): Female Sexual Orientation (if Verbalized by the Patient): Straight or Heterosexual Spiritual care concerns: No Meds Home Medications and Allergies Home Medications Medication Instructions Recorded Confirmed Type potassium citrate 15 mEq (1,620 15 meq PO BID 07/13/20 09/11/22 History mg) tablet,extended release omeprazole 20 mg capsule,delayed 20 mg PO DAILY 01/10/22 09/11/22 History release Allergies Allergy/AdvReac Type Severity Reaction Status Date / Time codeine Allergy Intermediate Chest Pain Verified 09/11/22 10:05 nitrofurantoin Allergy Mild FEVER AND Verified 09/11/22 10:05 JOINT PAIN sulfamethizole Allergy Mild Fever Verified 09/11/22 10:05 sulfamethoxazole Allergy Mild FEVER AND Verified 09/11/22 10:05 JOINT PAIN trimethoprim Allergy Mild Fever Verified 09/11/22 10:05 hydrocodone AdvReac Mild NAUSEA/VOMI Verified 09/11/22 10:05 TING Vital Signs Vital Signs - 24 hr 09/11/22 10:00 Temperature 97.0 F L Pulse Rate 67 Respiratory Rate 16 Blood Pressure 114/72 Pulse Oximetry 100 Oxygen Delivery Room Air Exam Const: General: healthy appearing and alert Orientation/consciousness: patient oriented x3 Resp: Effort & Inspection: normal respiratory effort GI: GI Palp: Yes Soft to palpation, No Tenderness to palpation pres
--- NOTE | 2022-09-11 11:13 | WPDANESEPPF ---
Anes - Initial Pre Proc Eval Procedure: Operation Date: 09/11/22 11:45 Proposed Procedures p Hysteroscopy, Dilation and Curettage - Hortencia Shabazz MD Date/Time: 09/11/22 11:13 Surgeon: Hortencia Shabazz MD Pre Op Diagnosis: post menopausal bleeding Patient Data Age: 62 Gender: F Height: 1.57 m Weight: 65.6 kg Last Vital Signs Temp 36.1 C L 09/11/22 10:00 Pulse 67 09/11/22 10:00 Resp 16 09/11/22 10:00 BP 114/72 09/11/22 10:00 Pulse Ox 100 09/11/22 10:00 O2 Del Method Room Air 09/11/22 10:00 Allergies Allergy/AdvReac Type Severity Reaction Status Date / Time codeine Allergy Intermediate Chest Pain Verified 09/11/22 10:05 nitrofurantoin Allergy Mild FEVER AND Verified 09/11/22 10:05 JOINT PAIN sulfamethizole Allergy Mild Fever Verified 09/11/22 10:05 sulfamethoxazole Allergy Mild FEVER AND Verified 09/11/22 10:05 JOINT PAIN trimethoprim Allergy Mild Fever Verified 09/11/22 10:05 hydrocodone AdvReac Mild NAUSEA/VOMI Verified 09/11/22 10:05 TING Home Medications Medication Instructions Recorded Confirmed Type potassium citrate 15 mEq (1,620 15 meq PO BID 07/13/20 09/11/22 History mg) tablet,extended release omeprazole 20 mg capsule,delayed 20 mg PO DAILY 01/10/22 09/11/22 History release Patient hx anesthesia problems: none Family hx anesthesia problems: none Results Review: All pre-operative results and documents have been reviewed as part of the pre-operative evaluation. [facility] Past Medical History Medical History Depression Frequent loose stools GERD (gastroesophageal reflux disease) H/O renal calculi Surgical History Surgical History History of delivery x2 History of cholecystectomy History of hysteroscopy August of 2022 failed secondary to perforation History of oophorectomy, unilateral S/P endometrial ablation in her 40s Family History Family History Mother Patient's mother is , Onset Age: 89 Hypertension Family history of Alzheimer's disease Father Patient's father is , Onset Age: 71 Cerebrovascular accident Social History Social History Smoking packs per day: 1 Smoking cigarettes per day: 20.0 Years smoked: 2 Smoking pack-years: 2.00 Smoking status: Never smoker Tobacco type: cigarettes Second hand tobacco smoke exposure: No Smoking end date: 03/05/78 Alcohol intake: current Alcohol use details: 1 PER MONTH Substance use: former 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 use: 1978 Lack of Transportation: No Lack of Food: Never True Current Housing: I Have Housing Concerned About Future Housing: No Difficulty Paying Gas/Electric Bills: No Difficulty Paying for Meds: No Currently Unemployed: No Education: High School Diploma/GED Difficulty w/ Childcare or Family Care: No Living arrangements: with family Gender identity (if verbalized by the patient): Female Sexual Orientation (if Verbalized by the Patient): Straight or Heterosexual Spiritual care concerns: No Anes - Eval Final PreProcedure Day of Procedure 09/11/22 11:13 Patient weight: overweight Heart: regular rate and rhythm Lungs: clear to auscultation Airway: Mallampati scale class II Neurological: alert and oriented Last oral intake: >/= 8 hours ASA classification: II Emergent: no Anesthetic plan: proceed Anesthesia type and monitoring: general GIVS and standard monitoring Results Review: All pre-operative results and documents have been reviewed as part of the pre-operative evaluation. Informed Consent: The patient's anesthetic plan and its attendant risks and benefits were discussed with the patient/family/POA. Questions were solicited
--- NOTE | 2022-09-11 12:19 | P.OP_ITS ---
Procedure Note - Detailed Date of Procedure 09/11/22 Pre-op Diagnosis post menopausal bleeding Post-op Diagnosis Same Procedure Performed Failed hysteroscopy Surgeon Hortencia Shabazz MD Anesthesia MAC Findings uterus sounds to 6cm and is anteverted Description of Procedure The patient is taken to the operating room and placed under anesthesia in the dorsal lithotomy position. She was prepped and draped in usual sterile fashion. [place] speculum was placed in the vagina and the cervix grasped on the anterior lip with a tenaculum. The os Finders are used and the cervix opened. The uterus is sounded to 6cm and noted to be anteverted. Hysteroscope was placed and the fluid began while in the cervix. While following the endocervical canal with hydrodissection, the hysteroscope immediately goes through the posterior wall as soon as entering the endometrial cavity. All instruments are removed. Patient is awakened from anesthesia and taken to recovery in stable condition. Estimated Blood Loss 5 Drains No Packing No Pathology None sent Complications No immediate complications Condition Stable Disposition PACU
[2022-09-11 12:23] VITALS: BP 95/51; PULSE 65; RESP 14; O2SAT 97
[2022-09-11 12:45] VITALS: BP 109/73; PULSE 67; RESP 14; O2SAT 97
[2022-09-11 13:10] VITALS: BP 99/67; PULSE 64; RESP 14
[2022-09-11 13:30] VITALS: BP 112/68; PULSE 67; RESP 16
== END 2022-09-11 13:50 | disposition home or self-care (01) ==
PROVIDERS: PCP Nurse Practitioner Family; Visit Provider Obstetrics & Gynecology Gynecology
PROC: 0U5B8ZZ Destruction of Endometrium, Via Natural or Artificial Opening Endoscopic (ICD-10-PCS; CPT 58563; principal; 2022-09-11 11:45)
DX: N95.0 Postmenopausal bleeding (principal); N99.71 Accidental puncture and laceration of a genitourinary system organ or structure during a genitourinary system procedure; K21.9 Gastro-esophageal reflux disease without esophagitis; Z87.891 Personal history of nicotine dependence
CPT/HCPCS: 58558; A9270; J2250; J2405; J2704; J3010; J7120

== ENCOUNTER 2022-09-19 09:38 | Outpatient (CLI) | payer BC, SELFPAY ==
--- NOTE | ~2022-09-19 | XR_ITS ---
Supine and upright views of the abdomen Clinical history: Renal stones COMPARISON: 09/20/2021 Findings: Bowel gas pattern is nonspecific. No evidence for obstruction or free air. No abnormal mass lesion or calcification is seen. Multiple pelvic phleboliths present. Osseous structures are intact. Impression: No definite renal stone identified. Multiple pelvic phleboliths. Reviewed, dictated and finalized at [facility]. Impression: No definite renal stone identified. Multiple pelvic phleboliths.
== END 2022-09-19 09:39 | disposition home or self-care (01) ==
LOC: ANHIMG 09:40
PROVIDERS: PCP Nurse Practitioner Family; Visit Provider Nurse Practitioner Family
DX: N20.0 Calculus of kidney (principal)
CPT/HCPCS: 74018

== ENCOUNTER → 2022-10-05 09:41 | Outpatient (CLI) | payer BC, SELFPAY ==
--- NOTE | ~2022-10-05 | US_ITS ---
EXAMINATION: US pelvic complete w TV DATE: 10/05/2022 11:31 INDICATION: Postmenopausal bleeding TECHNIQUE: Multiple transabdominal and endovaginal sonographic images of the pelvis were obtained. COMPARISON: 05/17/2022 FINDINGS: The uterus measures 7.6 x 3.1 x 2.0 cm. The endometrial complex measures 1 mm. The ovaries are not visualized however no adnexal abnormality is seen. There is a 1.8 cm posterior fibroid of the uterus. There is no free fluid in the pelvis. IMPRESSION: 1. No sonographic correlate for the patient's symptoms. Reviewed, dictated and finalized at location F.
== END ==
PROVIDERS: PCP Nurse Practitioner Family; Visit Provider Obstetrics & Gynecology Gynecology
DX: N95.0 Postmenopausal bleeding (principal)
CPT/HCPCS: 76830; 76856

== ENCOUNTER 2023-11-06 14:21 | Outpatient (CLI) | payer BC, SELFPAY ==
--- NOTE | ~2023-11-06 | XR_ITS ---
EXAMINATION: XR abdomen/kub 1V DATE: 11/06/2023 14:54 INDICATION: Kidney stones. TECHNIQUE: A supine view of the abdomen on 2 radiographs was obtained. COMPARISON: Abdomen radiographs 09/19/2022, CT abdomen and pelvis 03/05/2022 FINDINGS: There are no dilated loops of bowel. There is a large volume of stool in the colon. Surgica l clips in the right upper quadrant are likely from cholecystectomy. There are phleboliths in the pel vis and left ovarian vein. IMPRESSION: 1. No visible urolithiasis. Reviewed, dictated and finalized at location A. IMPRESSION: 1. No visible urolithiasis.
== END 2023-11-06 14:22 | disposition home or self-care (01) ==
PROVIDERS: PCP Nurse Practitioner Family; Visit Provider Nurse Practitioner Family
DX: N20.0 Calculus of kidney (principal); Z90.49 Acquired absence of other specified parts of digestive tract
CPT/HCPCS: 74018

== ENCOUNTER 2024-08-22 12:19 | Outpatient (CLI) | payer BC, SELFPAY ==
--- NOTE | ~2024-08-22 | CT_ITS ---
CT of the Abdomen and Pelvis: Indication: Abdominal pain Technique: 2.5 mm axial scans were obtained through the abdomen and pelvis following intravenous adm inistration of 100 cc of Omnipaque 350. Dose reduction technique was used on this scan by utilizing a utomated exposure control and iterative reconstruction technique. The dose-length product (DLP) was 4 43.86 mGy-cm. COMPARISON: 03/05/2022 Findings: Scans through the lung bases are unremarkable. Mild intrahepatic and extrahepatic biliary dilatation is likely related to prior cholecystectomy. Sma ll hepatic cysts are present. The spleen, pancreas, and kidneys are within normal limits. Bilateral a drenal nodules are essentially unchanged, most likely representing adenomas. No evidence of aortic an eurysm. No lymphadenopathy. No bowel obstruction or bowel wall thickening. There is diverticulosis. Images through the pelvis were performed. Urinary bladder unremarkable. No adnexal mass seen. No asci loida. Impression: No acute abnormality. Chronic findings, as above, stable from prior exam. Reviewed, dictated and finalized at [facility]. Impression: No acute abnormality. Chronic findings, as above, stable from prior exam.
[2024-08-22 12:57] LABS: Hematocrit 40.8 % (37.0-47.0); Hemoglobin 13.6 g/dL (12.0-15.0); Mean Corpuscular HGB Conc 33.3 g/dl (32-36); Mean Corpuscular Volume 92.9 fl (80-100); Mean Platelet Volume 10.2 fl (7.4-10.4); Platelet Count Result 359 k/mm3 (150-375); Red Blood Count 4.39 M/mm3 (4.2-5.4); Red Cell Distribution Width 13.6 % (11.5-14.5); White Blood Count 6.3 K/mm3 (4.5-10.0)
[2024-08-22 13:04] LABS: Estimated Glomerular Filt Rate 50
[2024-08-22 13:07] LABS: Alanine Aminotransferase 18 U/L (6-35); Alkaline Phosphatase 88 U/L (38-126); Anion Gap 8 mmol/L (4-12); Aspartate Amino Transferase 28 U/L (14-36); Bilirubin,Total 0.3 mg/dL (0.2-1.3); Blood Urea Nitrogen 20 mg/dL (7-17); CRP 0.7 mg/dL (<1.0); Calcium 9.8 mg/dL (8.4-10.2); Carbon Dioxide 26 mmol/L (22-30); Chloride 105 mmol/L (98-107); Estimated Glomerular Filt Rate 58; Glucose 89 mg/dL (65-110); Potassium 4.3 mmol/L (3.4-5.0); Sodium 139 mmol/L (137-145); Total Protein 6.9 g/dL (6.3-8.2)
[2024-08-22 13:25] LABS: Erythrocyte Sedimentation Rate 15 mm/hr (0-20)
== END 2024-08-22 12:20 | disposition home or self-care (01) ==
LOC: ANHIMG 12:21
PROVIDERS: PCP Clinical Nurse Specialist; Visit Provider Nurse Practitioner Family
DX: K57.90 Diverticulosis of intestine, part unspecified, without perforation or abscess without bleeding (principal); K76.89 Other specified diseases of liver; D35.01 Benign neoplasm of right adrenal gland; D35.02 Benign neoplasm of left adrenal gland
CPT/HCPCS: 36415; 74177; 80053; 85027; 85652; 86140; Q9967

== ENCOUNTER 2024-11-18 10:23 | Outpatient (CLI) | payer BC, SELFPAY ==
--- NOTE | ~2024-11-18 | XR_ITS ---
XR abdomen/kub 1V 11/18/2024 10:46 Indication: Kidney stones Procedure: KUB Comparison: 11/06/2023 Findings: There are cholecystectomy clips. Nonobstructive bowel gas pattern. There are vague calcific densities overlying the left kidney, suspicious for renal stones. There are pelvic phleboliths. Moderate lumbar spondylosis with dextroscoliosis. Impression: 1: Possible left nephrolithiasis. Reviewed, dictated and finalized at location O. Impression: 1: Possible left nephrolithiasis.
--- OUTSIDE RECORDS SUMMARY | 2024-11-18 12:09 | XMS_ITS | Clinical Summary ---
Author Organization [facility] Address [address] [place] [address] Care Team Providers Care Senior Peoplesoft Developer Name Role Phone Felecia Spring APRN-[employer] Primary Care Provider Source Comments [facility],non-owned Affiliates and Associated Physician Practices is amultiple site organization consisting of ambulatory clinics and hospital sitesin [place], [place], [place] and [place]. This disclosure is being madepursuant to the Care Everywhere program and may not contain all information available regarding this patient. Last updated 17.[facility] Medications * Be aware that medications may not be up to date on this document. Alwaysverify current medications with the patient. Calcium 250 MG Take by mouth DAILY. 10/05/2016 Active potassium citrate ER 15 MEQ (1620 MG) tablet Take by mouth DAILY. 10/05/2016 Active buPROPion XL 24hr (WELLBUTRIN-XL) 300 MG tablet Take 300 mg by mouth Every Morning. 10/05/2016 Active Vitamins/Mineral s TABS Take by mouth DAILY. 10/05/2016 Active omeprazole (PRILOSEC) 40 MG capsule Take 40 mg by mouth q48h. 10/05/2016 Active Milk Thistle Extract 87.5 MG Take 175 mg by mouth DAILY. 10/05/2016 Active aspirin (ASPIRIN) 81 MG tablet Take 81 mg by mouth DAILY. 10/05/2016 Active Active Problems Problem Noted Date Diagnosed Date Abnormal levels of other serum enzymes 7 Other specified diseases of liver 10/05/2016 Major depressive disorder, single episode 2016 Gastro-esophageal reflux disease without esophag itis 10/05/2016 Social History Tobacco Use Types Packs/Day Years Used Date Smoking Tobacco: Never Smokeless Tobacco: Never Alcohol Use Standard Drinks/Week Comments Yes 0 (1 standard drink = 0.6 oz pur e alcohol) Comments Unknown Sex and Gender Information Value Date Recorded Sex Assigned at Not on file Legal Sex Female 5:32 PM DEVELOPER ADVISOR Gender Identity Not on file Sexual Orientation Not on file Last Filed Vital Signs Vital Sign Reading Time Taken Comments Blood Pressure 135/73 10/05/2016 2:09 PM CDT Pulse 70 10/05/2016 2:09 PM CDT Temperature - - Respiratory Rate 16 10/05/2016 2:09 PM CDT Oxygen Saturation - - Inhaled Oxygen Concentration - - Weight 65.8 kg (145 lb) 10/05/2016 2:09 PM CDT Height 160 cm (5' 3) 10/05/2016 2:09 PM CDT Body Mass Index 25.69 10/05/2016 2:09 PM CDT Plan of Treatment Health Maintenance Due Date Last Done Comments COLOGUARD (AGES 45-75) - COL ON CA SCREENING 1960 COLON MONITORING 1960 COLONOSCOPY - COLON CA SCREENING 1960 CT COLONOGRAPHY - COLON CA SCREENING 1960 Colorectal Cancer Screening 1960 FIT - COLON CA SCREENING 1960 FLEX SIG - COLON CA SCREENING 1960 LIPID TESTING 1960 MAMMOGRAM 1960 HIV SCREENING 05/25/1975 HEPATITIS C SCREENING 05/20/1978 DTAP/TDAP/TD VACCINES (1 - Tdap) 05/25/1979 PNEUMOCOCCAL VACCINE 50+ (1 of 1 - PCV) 2010 ZOSTER VACCINE (1 of 2) 2010 DEPRESSION SCREENING 03/05/2024 COVID-19 VACCINE (1 - 2023-2 5 season) 2024 INFLUENZA VACCINE (#1) 2024 Respiratory Syncytial Virus (RSV) Vaccine Pt: or over 60 yrs (1 - 1-dose 75+ series) 05/25/2035 HEPATITIS B VACCINE Aged Out No longe r eligible based on patient's age to complete this topic HIB VACCINE Aged Out No longer eligi ble based on patient's age to complete this topic HPV VACCINE Aged Out No longer eligi ble based on patient's age to complete this topic MENINGOCOCCAL (Group B) VACC INE SHARED DECISION-MAKING Aged Out No longer eligibl e based on patient's age to complete this topic MENINGOCOCCAL GROUPS A/C/Y/W VACCINE Aged Out No longer eligible b ased on patient's age to complete this topic Insurance ANTHEM Care Teams Senior Peoplesoft Developer Relationship Specialty Start Date End Date Felecia Spring, OCCUPATIONAL THERAPY TECHNICIAN[employer] [address] [place] [id number] PCP - General 11/01/17
== END 2024-11-18 10:24 | disposition home or self-care (01) ==
PROVIDERS: PCP Student in an Organized Health Care Education/Training Program; Visit Provider Urology
DX: N20.0 Calculus of kidney (principal)
CPT/HCPCS: 74018

== ENCOUNTER 2024-12-03 18:51 | Emergency (ER) | payer BC, SELFPAY ==
--- NOTE | 2024-12-03 18:56 | ED.FEMALEGU ---
HPI - Female Genitourinary General Chief complaint: Urogenital-Female Stated complaint: possible bladder infection Source: patient Mode of arrival: ambulatory Limitations: no limitations History of Present Illness HPI Narrative: Pt is a 64 y/o female presenting with c/o possible UTI. Pt reports suprapubic pressure, hematuria, dysuria x 2 days. States she had same sx when at urology appt 2 days ago (goes yearly due to hx of kidney stones), had negative urine dipstick at that time. 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 No concern for STI. No additional complaints. Related Data Home Medications ?Medication ?Instructions ?Recorded ?Confirmed ?Last Taken ?Type potassium citrate 15 mEq (1,620 15 meq PO BID 07/13/20 09/16/24 03/04/22 07:00 History mg) tablet,extended release estradiol 10 mcg vaginal insert mcg vaginal 09/16/24 09/16/24 Unknown History (Imvexxy Maintenance Pack) Allergies Allergy/AdvReac Type Severity Reaction Status Date / Time codeine Allergy Intermediate Chest Pain Verified 12/03/24 19:01 nitrofurantoin Allergy Mild FEVER AND Verified 12/03/24 19:01 JOINT PAIN sulfamethizole Allergy Mild Fever Verified 12/03/24 19:01 sulfamethoxazole Allergy Mild FEVER AND Verified 12/03/24 19:01 JOINT PAIN trimethoprim Allergy Mild Fever Verified 12/03/24 19:01 hydrocodone AdvReac Mild NAUSEA/VOMI Verified 12/03/24 19:01 TING Review of Systems Review of Systems: CONSTITUTIONAL: Denies body aches, fever, chills, or sweats. EYES: Denies visual changes, redness, or discharge. ENT: Denies rhinorrhea, congestion, sore throat, or otalgia. CARDIOVASCULAR: Denies chest pain, palpitations, or edema. RESPIRATORY: Denies cough or dyspnea. GASTROINTESTINAL: Denies abdominal pain, nausea, vomiting, or diarrhea. GENITOURINARY: Reports dysuria, hematuria, suprapubic pressure. SKIN: Denies rash, itching, or wounds. MUSCULOSKELETAL: Denies back pain, joint pain, or myalgia. NEUROLOGIC: Denies headache, numbness, tingling, or weakness. PSYCH: Denies depression or anxiety. All systems reviewed & are unremarkable except as noted in HPI and below PMFSH Past Medical History Medical History LLQ pain Stool culture positive for Clostridioides difficile Ramandeepmi H/O renal calculi Frequent loose stools Depression GERD (gastroesophageal reflux disease) Surgical History Surgical History History of hysteroscopy August of 2022 failed secondary to perforation S/P endometrial ablation in her 40s History of oophorectomy, unilateral History of cholecystectomy History of delivery x2 Family History Family History Mother Patient's mother is , Onset Age: 89 Hypertension Family history of Alzheimer's disease Father Patient's father is , Onset Age: 71 Cerebrovascular accident Social History Social History Smoking packs per day: 1 Smoking cigarettes per day: 20.0 Years smoked: 2 Smoking pack-years: 2.00 Smoking status: Never smoker Tobacco type: cigarettes Second hand tobacco smoke exposure: No Smoking end date: 03/05/78 Alcohol intake: current Alcohol use details: 1 PER MONTH Substance use: former 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 use: 1978 Lack of Transportation: No Lack of Food: Never True Current Housing: I Have Housing Concerned About Future Housing: No Difficulty Paying Gas/Electric Bills: No Difficulty Paying for Meds: No Currently Unemployed: No Education: High School Diploma/GED Difficulty w/ Childcare or Family Care: No Living arrangements: with family Gender identity (if verbalized by the patient): Female Sexual Orientation (if Verbalized by the Patient): Straight or Heterosexual Spiritual care concerns: No Exam Narrative: GENERAL: Well-appearing, well-nourished, and in no acute distress. HEAD: Normocephalic, atraumatic. EYES: EOMI. No redness or drainage. Conjunctivae normal. ENT: Mucous membranes pink and moist. NECK: Normal AROM. Supple. CHEST: No respiratory distress. HEART: Regular rate ABDOMEN: Soft, nontender, nondistended, normal active bowel sounds. No CVAT EXTREMITIES: Normal range of motion. SKIN: Warm, dry, no rash. Capillary refill normal. Normal skin turgor. NEURO: No focal deficits. Alert and oriented x3. Gait steady. PSYCH: Normal affect. No signs of depression or anxiety. Course Course Level of Care: Express Care Visit Vital Signs Vital signs: Vital Signs Temperature 97 F L 12/03/24 19:02 Pulse Rate 75 12/03/24 19:02 Respiratory Rate 16 12/03/24 19:02 Blood Pressure 128/54 L 12/03/24 19:02 Pulse Oximetry 99 12/03/24 19:02 Oxygen Delivery Room Air 12/03/24 19:02 Temperature 97 F L 12/03/24 19:02 Pulse Rate 75 12/03/24 19:02 Respiratory Rate 16 12/03/24 19:02 Blood Pressure 128/54 L 12/03/24 19:02 Pulse Oximetry 99 12/03/24 19:02 Oxygen Delivery Room Air 12/03/24 19:02 MDM - Female Genitourinary Lab Data Attestation: I reviewed the patient's lab results. Labs: Lab Results 12/03/24 Range/Units 19:07 POC Urine Color Yellow POC Urine Clarity Cloudy POC Urine pH 5.5 POC Ur Specif [place] 1.025 POC Urine Protein 3+ (Negative) POC Ur Glucose (UA) Negative (Negative) POC Urine Ketones Trace (Negative) POC Urine Blood 3+ (Negative) POC Urine Nitrite Negative (Negative) POC Urine Bilirubin Negative (Negative) POC Urine Urobilinogen 0.2 POC U Leukocyte Esteras 1+ (Negative) Discharge Plan Discharge Clinical Impression: Dysuria Patient Disposition: Home Condition: Stable Instructions: Antibiotic Form, Urinary Tract Infection in Women (ED) Additional Instructions: Go straight to ER should your symptoms become worse or should any new symptoms develop Patient Language: Montserratian Prescriptions: New cephalexin 500 mg capsule 500 mg PO Q12H Qty: 14 0RF No Action Imvexxy Maintenance Pack 10 mcg insert vaginal albuterol sulfate 90 mcg/actuation HFA aerosol inhaler 1 inh inhalation Q6H PRN (Reason: shortness of breath or wheezing) Qty: 6.7 3RF potassium citrate 15 mEq tablet extended release 15 meq PO BID Zepbound 2.5 mg/0.5 mL solution 2.5 mg subcut WEEKLY 28 Days Qty: 2 3RF omeprazole 20 mg capsule,delayed release(DR/EC) 20 mg PO DAILY Qty: 90 2RF Follow-up/Referrals: Jose Castaneda APRN [Primary Care Provider, [facility]] - 12/04/24 Time of Disposition: 19:11
[2024-12-03 19:02] VITALS: BP 128/54; PULSE 75; RESP 16; TEMP 36.1; O2SAT 99
[2024-12-03 19:09] LABS: EDUAAPPEAR Cloudy; EDUABILI Negative (Negative); EDUABLOOD 3+ (Negative); EDUACOLOR1 Yellow; EDUAGLUCOSE Negative (Negative); EDUAKETONE Trace (Negative); EDUALEUKO 1+ (Negative); EDUANITRATE Negative (Negative); EDUAPH 5.5; EDUAPROTEIN 3+ (Negative); EDUASPGRAVITY 1.025; EDUAUROBILI 0.2
== END 2024-12-03 19:20 | disposition home or self-care (01) ==
PROVIDERS: Emergency Provider Registered Nurse; PCP Student in an Organized Health Care Education/Training Program
DX: R30.0 Dysuria (principal); K21.9 Gastro-esophageal reflux disease without esophagitis; Z87.891 Personal history of nicotine dependence
CPT/HCPCS: 81003; 87077; 87086; 87186; 99213; G0463

== ENCOUNTER 2024-12-18 08:15 | Outpatient (CLI) | payer BC, SELFPAY ==
--- OUTSIDE RECORDS SUMMARY | 2024-12-18 08:18 | XMS_ITS | Clinical Summary ---
Author Organization [facility] Address [address] [place] [address] Care Team Providers Care Professor Of Political Science Name Role Phone Felecia Spring APRN-BAG INSPECTOR Primary Care Provider Source Comments [facility],non-owned Affiliates and Associated Physician Practices is amultiple site organization consisting of ambulatory clinics and hospital sitesin [place], [place], [place] and [place]. This disclosure is being madepursuant to the Care Everywhere program and may not contain all information available regarding this patient. 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
[2024-12-18 19:57] LABS: Anion Gap 7 mmol/L (4-12); Blood Urea Nitrogen 16 mg/dL (7-17); Calcium 9.1 mg/dL (8.4-10.2); Carbon Dioxide 25 mmol/L (22-30); Chloride 106 mmol/L (98-107); Cholesterol 169 mg/dL (0-200); Estimated Glomerular Filt Rate > 60; Glucose 71 mg/dL (65-110); HDL Direct 54 mg/dL; Potassium 3.8 mmol/L (3.4-5.0); Sodium 138 mmol/L (137-145); Triglycerides 78 mg/dL (<150)
[2024-12-18 20:35] LABS: Thyroid Stimulating Hormone 0.996 uIU/mL (0.465-4.680)
== END 2024-12-18 08:16 | disposition home or self-care (01) ==
LOC: ANHGOSHLAB 08:16
PROVIDERS: PCP Student in an Organized Health Care Education/Training Program; Visit Provider Student in an Organized Health Care Education/Training Program
DX: R94.4 Abnormal results of kidney function studies (principal); E66.9 Obesity, unspecified; Z13.220 Encounter for screening for lipoid disorders; K21.9 Gastro-esophageal reflux disease without esophagitis
CPT/HCPCS: 36415; 80048; 80061; 84443

== ENCOUNTER 2025-01-27 08:53 | Outpatient (CLI) | payer BC, SELFPAY ==
--- NOTE | ~2025-01-27 | DEXA_ITS ---
Bone Density Report Name: STACEY RIVERA Age: 64 Sex: Female Ethnicity: White Date of : 1960 Indication: osteopenia; Referring Provider: LOBODANYELLE Study: Bone densitometry was performed. Exam Date: January 27, 2025 Accession number: [id number] Bone Density: Region BMD T-score Z-score Classification AP Spine(L1-L4) 0.825 -2.0 -0.3 Osteopenia Femoral Neck (Left) 0.618 -2.1 -0.6 Osteopenia Total Hip (Left) 0.725 -1.8 -0.6 Osteopenia Femoral Neck (Right) 0.601 -2.2 -0.7 Osteopenia Total Hip (Right) 0.651 -2.4 -1.2 Osteopenia Total Hip Mean 0.688 -2.1 -0.9 Osteopenia World Health Organization criteria for BMD impression classify patients as: Normal (T-score at or above -1.0), Osteopenia (T-score between -1.0 and -2.5), or Osteoporosis (T-score at or below -2.5). 10-year Fracture Risk(1): Major Osteoporotic Fracture 11% Hip Fracture 1.8% Reported Risk Factors: [place] (), Neck BMD=0.601, BMI=23.2 (1) FRAX(R) Version 3.08. Fracture probability calculated for an untreated patient. Fracture probability may be lower if the patient has received treatment. Previous Exams: -- Region Exam Age BMD T-score BMD Change BMD Change Date g/cm2 vs Baseline vs Previous -- AP Spine (L1-L4) 01/27/2025 64 0.825 -2.0 -5.2%* -5.2%* 10/03/2019 59 0.870 -1.6 Total Hip(Left) 01/27/2025 64 0.725 -1.8 -3.9%* -3.9%* 10/03/2019 59 0.754 -1.5 Total Hip(Right) 01/27/2025 64 0.651 -2.4 -8.5%* -8.5%* 10/03/2019 59 0.711 -1.9 -- *Denotes significance at 95% confidence level, LSC for AP Spine = 0.022 g/cm2, LSC for Total Hip = 0.027 g/cm2 Clinical Information Provided by Patient: Has used the following medications: Vitamin D, Calcium Patient maximum height was 63 Menopause Age: 51 Drinks caffeinated beverages Onset of menses at age 14 Number of children 2 Impression: The patient has low bone mass, based on the Right Total Hip T-score. The patient has an estimated ten-year risk of hip fracture of 1.8% and an estimated ten-year risk of major fracture of 11%, based on the WHO FRAX algorithm. The BMD for the AP Spine (L1-L4) decreased, changing by -5.2% since the last DXA exam. The BMD for the Total Hip(Left) decreased, changing by -3.9% since the last DXA exam. The BMD for the Total Hip(Right) decreased, changing by -8.5% since the last DXA exam. Discussion: BONE DENSITY IS LOW AT ONE OR MORE SKELETAL SITES. This patient's lowest T-score is low at one or more skeletal sites. It meets the World Health Organization's (WHO) criteria for ?low bone mass? (T-score between -1.0 and -2.5). The patient's 10-year risk of fracture as calculated by FRAX is less than the threshold where pharmacological therapy is recommended by the National Osteoporosis Foundation (NOF). However, all treatment decisions require clinical judgment and consideration of individual patient factors, including patient preferences, comorbidities, previous drug use, risk factors not captured in the FRAX model (e.g., frailty, falls, vitamin D deficiency, increased bone turnover, interval significant decline in bone density) and possible under or overestimation of fracture risk by FRAX. The patient should follow a healthful lifestyle (good nutrition with adequate calcium and vitamin D, and appropriate weight-bearing exercise). Follow-Up: Consider repeating this study in 2 years to reassess this patient's status, or sooner if there is some new clinical indication. Reported by: KENYETTA on 01/27/2025 9:20:00 AM. Reviewed, dictated and finalized at location A.
== END 2025-01-27 08:54 | disposition home or self-care (01) ==
LOC: MICIMG 08:54
PROVIDERS: PCP Student in an Organized Health Care Education/Training Program
DX: Z78.0 Asymptomatic menopausal state (principal); Z13.820 Encounter for screening for osteoporosis; M85.88 Other specified disorders of bone density and structure, other site; M85.852 Other specified disorders of bone density and structure, left thigh; M85.851 Other specified disorders of bone density and structure, right thigh
CPT/HCPCS: 77080

== ENCOUNTER 2025-02-05 13:45 | Outpatient (CLI) | payer BC, SELFPAY ==
[2025-02-05 14:49] LABS: Alanine Aminotransferase 18 U/L (6-35); Albumin Level 4.0 g/dL (3.5-5.1); Alkaline Phosphatase 66 U/L (38-126); Anion Gap 3 mmol/L (4-12); Aspartate Amino Transferase 27 U/L (14-36); Bilirubin,Total 0.4 mg/dL (0.2-1.3); Blood Urea Nitrogen 21 mg/dL (7-17); Calcium 9.8 mg/dL (8.4-10.2); Carbon Dioxide 28 mmol/L (22-30); Chloride 106 mmol/L (98-107); Estimated Glomerular Filt Rate 46; Glucose 88 mg/dL (65-110); Potassium 4.6 mmol/L (3.4-5.0); Sodium 137 mmol/L (137-145); Total Protein 6.5 g/dL (6.3-8.2)
== END 2025-02-05 13:46 | disposition home or self-care (01) ==
LOC: ANHGOSHLAB 13:49
PROVIDERS: PCP Student in an Organized Health Care Education/Training Program
DX: M85.88 Other specified disorders of bone density and structure, other site (principal)
CPT/HCPCS: 36415; 80053; 82306